=== PATIENT | female | born 1960 | race Caucasian/White ===

== ENCOUNTER 2023-08-19 13:03 | Outpatient (RCR) | payer OTHER, SELFPAY | END 2023-08-19 23:59 | disposition home or self-care (01) | LOC: ROT 13:03 | PROVIDERS: ATTENDING PHYSICIAN Physical Medicine & Rehabilitation; FAMILY PHYSICIAN Internal Medicine Geriatric Medicine | DX: C71.1 Malignant neoplasm of frontal lobe (principal); R47.89 Other speech disturbances; R41.844 Frontal lobe and executive function deficit; R41.841 Cognitive communication deficit; R41.4 Neurologic neglect syndrome; G81.94 Hemiplegia, unspecified affecting left nondominant side; Z73.6 Limitation of activities due to disability | CPT/HCPCS: 92507; 97110; 97112; 97530; 97535 ==

== ENCOUNTER 2023-09-15 13:50 | Outpatient (RCR) | payer BC, SELFPAY | END 2023-09-15 23:59 | disposition home or self-care (01) | LOC: ROT 13:50 | PROVIDERS: ATTENDING PHYSICIAN Physical Medicine & Rehabilitation; FAMILY PHYSICIAN Internal Medicine Geriatric Medicine | DX: C71.1 Malignant neoplasm of frontal lobe (principal); Z73.6 Limitation of activities due to disability | CPT/HCPCS: 96125; 97010; 97110; 97112; 97129; 97130; 97167; 97530 ==

== ENCOUNTER → 2023-09-25 10:47 | Outpatient (REF) | payer MEDICARE, SELFPAY | LOC: HWWDC 10:47 | PROVIDERS: ATTENDING PHYSICIAN Obstetrics & Gynecology; FAMILY PHYSICIAN Internal Medicine Geriatric Medicine | DX: Z12.31 Encounter for screening mammogram for malignant neoplasm of breast (principal) | CPT/HCPCS: 77063; 77067 ==

== ENCOUNTER 2023-10-09 12:40 | Outpatient (RCR) | payer MEDICARE, SELFPAY | END 2023-10-09 23:59 | disposition home or self-care (01) | LOC: ROT 12:40 | PROVIDERS: ATTENDING PHYSICIAN Physical Medicine & Rehabilitation; FAMILY PHYSICIAN Internal Medicine Geriatric Medicine | DX: C71.1 Malignant neoplasm of frontal lobe (principal); Z73.6 Limitation of activities due to disability | CPT/HCPCS: 96125; 97010; 97110; 97112; 97129; 97130; 97163; 97530; 97535 ==

== ENCOUNTER → 2023-10-21 14:01 | Outpatient (REF) | payer MEDICARE, SELFPAY | LOC: RAD 14:01 | PROVIDERS: ATTENDING PHYSICIAN Internal Medicine Geriatric Medicine | DX: G40.909 Epilepsy, unspecified, not intractable, without status epilepticus (principal); G56.21 Lesion of ulnar nerve, right upper limb; K21.9 Gastro-esophageal reflux disease without esophagitis; K59.01 Slow transit constipation; N39.41 Urge incontinence; N81.10 Cystocele, unspecified; N81.9 Female genital prolapse, unspecified; Z82.49 Family history of ischemic heart disease and other diseases of the circulatory system; Z13.89 Encounter for screening for other disorder; E55.9 Vitamin D deficiency, unspecified; M81.0 Age-related osteoporosis without current pathological fracture; E78.5 Hyperlipidemia, unspecified; G93.89 Other specified disorders of brain; M54.12 Radiculopathy, cervical region | CPT/HCPCS: 72052 ==

== ENCOUNTER → 2024-01-26 17:26 | Outpatient (REF) | payer MEDICARE, SELFPAY | LOC: MRI 17:26 | PROVIDERS: ATTENDING PHYSICIAN Internal Medicine Hospice and Palliative Medicine; FAMILY PHYSICIAN Internal Medicine Geriatric Medicine | DX: R53.1 Weakness (principal); R27.9 Unspecified lack of coordination; M25.512 Pain in left shoulder; R53.83 Other fatigue; C71.9 Malignant neoplasm of brain, unspecified | CPT/HCPCS: 73223; A9575 ==

== ENCOUNTER → 2024-02-26 17:02 | Outpatient (REF) | payer MEDICARE, SELFPAY | LOC: RAD 17:02 | PROVIDERS: ATTENDING PHYSICIAN Family Medicine Sports Medicine; FAMILY PHYSICIAN Internal Medicine Geriatric Medicine | DX: M70.62 Trochanteric bursitis, left hip (principal) | CPT/HCPCS: 73502 ==

== ENCOUNTER 2024-05-14 14:11 | Emergency (ER) | payer MEDICARE, SELFPAY ==
[2024-05-14 14:18] VITALS: BP 117/71
[2024-05-14 16:15] VITALS: BP 113/77; BMI 25.0
--- NOTE | 2024-05-14 16:19 | ED.GENMED ---
History of Present Illness
<ASH Gonzalez - Last Filed: 05/14/24 18:31>
General
Chief Complaint: Fall
Source: patient and spouse
Exam Limitations: none
Time Seen by Provider: 05/14/24 15:48
Nursing documentation reviewed up to this point in time: agreed with
History of Present Illness
History of Present Illness:
Patient is a 63-year-old female with history of brain tumor presents to the ER for evaluation. Patient has had radiation and 4 rounds of chemo( last chemo was 3 weeks ago). She reports ever since her craniotomy and surgery a year ago, her
balance has not been the same. she does have left-sided weakness since surgery however for the past several months patient is falling and more frequently. She fell yesterday and fell again this morning. She reports she never has hurt herself
during fall she denies any lightheaded dizziness prior to fall she simply falls. She denies any headache. She denies any chest pain shortness of breath. She denies any recent illness. She called her physician who recommended she come to the ER.
She is followed by Dr. Zee Hancock at [facility].
Past History
<ASH Gonzalez - Last Filed: 05/14/24 18:31>
Past History
ED Past Medical History: GERD
ED Past Surgical History: Gynecological (Tubal ligation)
Social History
Tobacco: Non-smoker
Alcohol: Occasional
Drug: None
Review of Systems
<ASH Gonzalez - Last Filed: 05/14/24 18:31>
Review of Systems
Allergies reviewed?: Yes
All Other Systems: ROS reviewed and negative except as documented in HPI and ROS
Constitutional: Reports no symptoms; Denies fever, fatigue or chills
Respiratory: Reports no symptoms
Cardiac: Reports no symptoms
ABD/GI: Reports no symptoms
Musculoskeletal: Reports no symptoms
Skin: Reports no symptoms
Neurological: Reports other (chronic left sided weakness); Denies headache
Psychiatric: Reports no symptoms
Phy Exam
<ASH Gonzalez - Last Filed: 05/14/24 18:31>
General Physical Exam
General Presentation: no apparent distress
General age: appears stated age
General Skin: warm and dry
General Habitus: normal
General Mental: alert
General Hydration: appears well hydrated
ENT Exam
ENT Exam: EOMI
Neurological Exam
Neurological Exam: alert and other (left side slightly weak (chronic ) )
Musculoskeletal Exam
Musculoskeletal Exam: full ROM
Skin Exam
Skin Exam: normal color
Course
<ASH Gonzalez - Last Filed: 05/14/24 18:31>
Orders/Labs/Results
Orders:
Orders
05/14/24 14:24
CT Head W/o Iv Contrast Urgent
Comment: hx brain cancer followed at [facility]
Reason For Exam: fell twice once today ,once yesterday
05/14/24 16:58
IV Insert/Care/Rem.- Treatment PRN
05/14/24 17:36
Complete Blood Count/With Diff Urgent
Comprehensive Metabolic Panel Urgent
Urinalysis Reflex To Culture Urgent
Date Specimen was Collected: 05/14/24
Time Specimen was Collected: 17:24
Urine Microscopic Reflex Cult Urgent
Urine Culture Urgent
MCKENZIE Source: U
Specimen Description:
Date Specimen was Collected: 05/14/24
Time Specimen was Collected: 17:24
05/14/24 17:46
MR Brain W/o & With Contrast Urgent
Reason For Exam: brain cancer history freq falls
OK for patient to be off Cardiac Monitoring for MRI: Yes
Recent pill cam endoscopy?: No
05/14/24 20:28
Dexamethasone Sod Phosphate [Decadron] 10 mg IV NOW STA
05/14/24 20:32
Cephalexin Monohydrate [Keflex] 500 mg PO NOW STA
Abnormal Lab Results
05/14/24
17:36
WBC 3.6 L 10^3/uL
(4.8-10.8)
RBC 3.24 L 10^6/uL
(4.20-5.40)
Hgb 10.4 L g/dL
(12.0-16.0)
Hct 30.7 L %
(37.0-47.0)
MCH 32.1 H pg
(27.0-31.0)
Plt Count 75 L 10^3/uL
(130-400)
Absolute Lymphs (auto) 0.6 L 10^3/uL
(1.2-3.4)
Lymphocytes % 17.5 L %
(20.5-51.1)
Eosinophils % 6.2 H %
(0-6)
BUN 20 H mg/dl
(7-17)
Glucose 104 H mg/dl
(70-99)
AST 43 H U/L
(14-36)
ALT 61 H U/L
(0-35)
Alkaline Phosphatase 129 H U/L
(38-126)
Total Protein 6.0 L g/dl
(6.3-8.2)
Leukocyte Esterase Rfl 1+ A
(Negative)
Urine WBC (Reflex) 16-20 A /HPF
(0-5)
05/14/24 17:36
05/14/24 17:36
Vital Signs
Initial and Last Documented VS:
Initial Vital Signs
Temp Pulse Resp BP Pulse Ox
98.0 F 77 16 117/71 98
05/14/24 14:18 05/14/24 14:18 05/14/24 14:18 05/14/24 14:18 05/14/24 14:18
Last Documented Vital Signs
Temp Pulse Resp BP Pulse Ox
98.0 F 66 18 113/72 98
05/14/24 14:18 05/14/24 19:08 05/14/24 19:08 05/14/24 19:08 05/14/24 19:08
<Judith Carroll NP - Last Filed: 05/14/24 22:42>
Orders/Labs/Results
Orders:
Orders
05/14/24 14:24
CT Head W/o Iv Contrast Urgent
Comment: hx brain cancer followed at [facility]
Reason For Exam: fell twice once today ,once yesterday
05/14/24 16:58
IV Insert/Care/Rem.- Treatment PRN
05/14/24 17:36
Complete Blood Count/With Diff Urgent
Comprehensive Metabolic Panel Urgent
Urinalysis Reflex To Culture Urgent
Date Specimen was Collected: 05/14/24
Time Specimen was Collected: 17:24
Urine Microscopic Reflex Cult Urgent
Urine Culture Urgent
MCKENZIE Source: U
Specimen Description:
Date Specimen was Collected: 05/14/24
Time Specimen was Collected: 17:24
05/14/24 17:46
MR Brain W/o & With Contrast Urgent
Reason For Exam: brain cancer history freq falls
OK for patient to be off Cardiac Monitoring for MRI: Yes
Recent pill cam endoscopy?: No
05/14/24 20:28
Dexamethasone Sod Phosphate [Decadron] 10 mg IV NOW STA
05/14/24 20:32
Cephalexin Monohydrate [Keflex] 500 mg PO NOW STA
Abnormal Lab Results
05/14/24
17:36
WBC 3.6 L 10^3/uL
(4.8-10.8)
RBC 3.24 L 10^6/uL
(4.20-5.40)
Hgb 10.4 L g/dL
(12.0-16.0)
Hct 30.7 L %
(37.0-47.0)
MCH 32.1 H pg
(27.0-31.0)
Plt Count 75 L 10^3/uL
(130-400)
Absolute Lymphs (auto) 0.6 L 10^3/uL
(1.2-3.4)
Lymphocytes % 17.5 L %
(20.5-51.1)
Eosinophils % 6.2 H %
(0-6)
BUN 20 H mg/dl
(7-17)
Glucose 104 H mg/dl
(70-99)
AST 43 H U/L
(14-36)
ALT 61 H U/L
(0-35)
Alkaline Phosphatase 129 H U/L
(38-126)
Total Protein 6.0 L g/dl
(6.3-8.2)
Leukocyte Esterase Rfl 1+ A
(Negative)
Urine WBC (Reflex) 16-20 A /HPF
(0-5)
05/14/24 17:36
05/14/24 17:36
Vital Signs
Initial and Last Documented VS:
Initial Vital Signs
Temp Pulse Resp BP Pulse Ox
98.0 F 77 16 117/71 98
05/14/24 14:18 05/14/24 14:18 05/14/24 14:18 05/14/24 14:18 05/14/24 14:18
Last Documented Vital Signs
Temp Pulse Resp BP Pulse Ox
98.0 F 66 18 113/72 98
05/14/24 14:18 05/14/24 19:08 05/14/24 19:08 05/14/24 19:08 05/14/24 19:08
<ASH Gonzalez - Last Filed: 05/14/24 18:31>
MDM/Problems Addressed
MDM/Problems Addressed:
Pt as documented is a 63 yr old female w/ hx of brain tumor craniotomy radiation and chemo presents for increased falling. Patient fell yesterday and fell today she denies hitting her head is on blood thinners however with increased frequency of
falls she was sent by her oncologist at [place] Dr. Hancock . I spoke to the physician administrative assistant data entry of and they are asking for lab work to rule out other causes for following. CAT scan was done no bleed however large amount of low-attenuation
throughout the white matter of the right frontal lobe diagnostic possibilities are encephalomalacia at the site of the treated tumor, radiation necrosis or recurrent/residual tumor with vasogenic edema. I did review these findings with physician
administrative assistant data entry at [facility]. who does recommend MRI and labs . I spoke with DR Hancock [phone] will call her back with MRI results.
Care of pt at this time transferred to [facility]
<Judith Carroll NP - Last Filed: 05/14/24 22:42>
MDM/Problems Addressed
MDM/Problems Addressed:
Pt as documented is a 63 yr old female w/ hx of brain tumor craniotomy radiation and chemo presents for increased falling. Patient fell yesterday and fell today she denies hitting her head is on blood thinners however with increased frequency of
falls she was sent by her oncologist at [place] Dr. Hancock . I spoke to the physician administrative assistant data entry of and they are asking for lab work to rule out other causes for following. CAT scan was done no bleed however large amount of low-attenuation
throughout the white matter of the right frontal lobe diagnostic possibilities are encephalomalacia at the site of the treated tumor, radiation necrosis or recurrent/residual tumor with vasogenic edema. I did review these findings with physician
administrative assistant data entry at [facility]. who does recommend MRI and labs . I spoke with DR Hancock [phone] will call her back with MRI results.
Care of pt at this time transferred to [facility]
20:30
Patient MRI results back.
results read to Dr. Hancock she agrees there is nothing acute,
If patient neuro exam is normal and she can ambulate with steady gait she may go home
Pt is on day 2 of Medrol dose pack for a rash
Dr. Hancock asks to stop Methylprednisolone and start Decadron. Give a dose here and then Decadron 4 mg BID give [address] Hancock will touch base with pt on Friday (3 days)
Disc of MRI and CT given to pt.
In to evaluate pt: Neuro exam unremarkable
Offered admission to observe overnight after Decadron
OOB and ambulating well, 'I feel very good.' Pt wants to go home. This is reasonable as she is very steady on feet.
Rx for Decadron sent to pt pharmacy
<Judith Carroll PHP ENGINEER - Last Filed: 05/14/24 22:42>
*Critical Care Note
Total Time (30-74mins, 75-104mins- exclusive of procedures): Not Applicable
ED Attending Note
<ASH Gonzalez - Last Filed: 05/14/24 18:31>
-
Portions of this chart may have been created with voice recognition software.� Occasional wrong word or��sound alike� substitutions may have occurred due to the inherent limitations of voice recognition software.
Discharge Plan
Departure
Patient Disposition: Home (Routine Discharge)
Date of Disposition: 05/14/24
Time of Disposition: 20:30
Patient with high blood pressure during this ER visit?: No
Condition: Good
Discharge Problem:
Acute UTI, Fall
Instructions: Preventing falls in adults, Urinary Tract Infection, Adult ED
Prescriptions:
New
dexamethasone 4 mg tablet
4 mg PO BID Qty: 28 0RF
cephalexin 500 mg capsule
500 mg PO BID 7 Days Qty: 13 0RF
No Action
acetaminophen 325 mg Tablet
650 mg PO Q4H PRN (Reason: Pain)
atorvastatin 20 mg Tablet
20 mg PO DAILY
polyethylene glycol 3350 [Miralax] 17 gram Powder In Packet
17 g PO DAILY
melatonin 3 mg Tablet
3 mg PO HS PRN (Reason: innsomnia)
omeprazole 20 mg Capsule,Delayed Release(Dr/Ec)
20 mg PO DAILY
loratadine 10 mg Tablet
10 mg PO DAILY Qty: 30 0RF
lidocaine 4 % Adhesive Patch,Medicated
1 patch topical DAILY Qty: 30 0RF
cyclobenzaprine 5 mg Tablet
5 mg PO TID PRN (Reason: muscle spasms) Qty: 60 0RF
levetiracetam 1,000 mg Tablet
1,000 mg PO Q12H Qty: 60 0RF
Referrals:
Zee Hancock MD [Non-Admitting Privileges] - Keep scheduled appt
Reinaldo Kenney MD [Family Provider] -
Activity Restrictions/Additional Instructions:
As we discussed, I spoke with Dr. Hancock. She wants you to stop the methylprednisolone and start the Decadron (dexamethasone).
You were given a dose of dexamethasone 10 mg here today. I sent a prescription to your pharmacy for Decadron 4 mg tablets to take twice a day until you talk to Dr. Hancock on Friday
Take the discs of your CT and MRI with you when you see her next.
You have an early urine infection. You were given Keflex 500 mg here today and I sent a prescription to your pharmacy for Keflex 500 mg to take twice a day for 7 days.
Interventions
Interventions:
*Risk Screen - Suicide Last Done: 05/14/24 14:18
*Neglect/Abuse Screening Last Done: 05/14/24 14:18
ED- Fall Risk Assessment Last Done: 05/14/24 16:18
*Nursing Disposition Last Done: 05/14/24 20:57
ED-Musculoskeletal Assessment Last Done: 05/14/24 16:18
ED- Neurological Assessment Last Done: 05/14/24 16:18
Discharge Date and Time
Discharge Date/Time: 05/14/24 20:57
Print Language: MOROCCAN
[2024-05-14 17:59] LABS: ALT (SGPT) 61 U/L (0-35); AST (SGOT) 43 U/L (14-36); Albumin 3.8 g/dl (3.5-5.0); Alkaline Phosphatase 129 U/L (38-126); Blood Urea Nitrogen 20 mg/dl (7-17); Calcium 8.8 mg/dl (8.4-10.2); Carbon Dioxide 27 mmol/L (22-30); Chloride 101 mmol/L (98-107); Estimated Creatinine Clearance 94 ml/min; Glucose 104 mg/dl (70-99); Potassium 3.8 mmol/L (3.5-5.1); Sodium 138 mmol/L (135-145); Total Bilirubin 0.3 mg/dl (0.2-1.3); eGFR > 60.00
[2024-05-14 18:21] LABS: % Basophils 0.3 % (0-2); % Eosinophils 6.2 % (0-6); % Immature Granulocytes 0.3 % (0-0.5); % Lymphocytes 17.5 % (20.5-51.1); % Monocytes 7.6 % (1.7-9.3); % Neutrophils 68.1 % (42.2-75.2); Absolute Eosinophils 0.2 10^3/uL (0-0.7); Absolute Lymphocytes 0.6 10^3/uL (1.2-3.4); Absolute Monocytes 0.3 10^3/uL (0.1-0.6); Absolute Neutrophils 2.4 10^3/uL (1.4-6.5); Hematocrit 30.7 % (37.0-47.0); Hemoglobin 10.4 g/dL (12.0-16.0); Mean Corp Hgb Conc. 33.9 g/dL (33.0-37.0); Mean Corpuscular Hgb 32.1 pg (27.0-31.0); Mean Corpuscular Volume 94.8 fL (81.0-99.0); Mean Platelet Volume 9.7 fL (7.4-10.4); Nucleated Red Blood Cells % 0 %; Platelet Count 75 10^3/uL (130-400); Red Blood Cell Count 3.24 10^6/uL (4.20-5.40); Red Cell Dist. Width 13.6 % (11.5-14.5); White Blood Cell Count 3.6 10^3/uL (4.8-10.8)
[2024-05-14 19:08] VITALS: BP 113/72
[2024-05-14 19:57] LABS: Urine Albumin Negative (Neg - Trace); Urine Bilirubin Negative (Negative); Urine Character Clear (Clear); Urine Color Yellow; Urine Glucose Negative (Negative); Urine Ketone Negative (Negative); Urine Leukocyte 1+ (Negative); Urine Nitrite Negative (Negative); Urine Occult Blood Negative (Negative); Urine Specific Gravity 1.015 (<1.030); Urine Urobilinogen Negative (Neg - 1+)
[2024-05-14 20:17] LABS: Urine Calcium Oxalate Crystals Present; Urine Red Blood Cell 0-2 /HPF (0-2); Urine White Cell 16-20 /HPF (0-5)
[2024-05-14] MEDS: KEFLEX 500 MG PO (20:35)
[2024-05-14] MEDS: DECADRON 10 MG IV (20:35)
== END 2024-05-14 20:57 | disposition home or self-care (01) ==
LOC: EMR 14:11
PROVIDERS: Nurse Practitioner; EMERGENCY PHYSICIAN Emergency Medicine; FAMILY PHYSICIAN Internal Medicine Geriatric Medicine
DX: N39.0 Urinary tract infection, site not specified (principal); R53.1 Weakness; W19.XXXA Unspecified fall, initial encounter; K21.9 Gastro-esophageal reflux disease without esophagitis; C71.9 Malignant neoplasm of brain, unspecified; R29.6 Repeated falls; Z92.3 Personal history of irradiation; Z92.21 Personal history of antineoplastic chemotherapy; Z85.828 Personal history of other malignant neoplasm of skin
CPT/HCPCS: 99285; 96374; 70450; 70553; 80053; 81003; 81015; 85025; 87086; A9575

== ENCOUNTER 2024-07-19 09:26 | Outpatient (RCR) | payer MEDICARE, SELFPAY | END 2024-07-19 23:59 | disposition home or self-care (01) | LOC: ROT 09:26 | PROVIDERS: ATTENDING PHYSICIAN Internal Medicine Hospice and Palliative Medicine; FAMILY PHYSICIAN Internal Medicine Geriatric Medicine | DX: C71.1 Malignant neoplasm of frontal lobe (principal); S42.212S Unspecified displaced fracture of surgical neck of left humerus, sequela; R26.89 Other abnormalities of gait and mobility; G62.89 Other specified polyneuropathies; Z91.81 History of falling; Z73.6 Limitation of activities due to disability | CPT/HCPCS: 97110; 97112; 97163; 97167; 97530; 97535 ==

== ENCOUNTER 2024-07-22 06:23 | Day surgery (SDC) | payer MEDICARE, SELFPAY | END 2024-07-22 08:21 | disposition home or self-care (01) | LOC: GI 06:23 | PROVIDERS: ATTENDING PHYSICIAN Internal Medicine Gastroenterology | DX: R12 Heartburn (principal); K44.9 Diaphragmatic hernia without obstruction or gangrene; K31.7 Polyp of stomach and duodenum; K26.9 Duodenal ulcer, unspecified as acute or chronic, without hemorrhage or perforation; Z13.810 Encounter for screening for upper gastrointestinal disorder | CPT/HCPCS: 43239; 88305; 88342 ==

== ENCOUNTER 2024-08-16 15:59 | Outpatient (RCR) | payer MEDICARE, SELFPAY | END 2024-08-16 23:59 | disposition home or self-care (01) | LOC: ROT 15:59 | PROVIDERS: ATTENDING PHYSICIAN Internal Medicine Hospice and Palliative Medicine; FAMILY PHYSICIAN Internal Medicine Geriatric Medicine | DX: C71.1 Malignant neoplasm of frontal lobe (principal); S42.212S Unspecified displaced fracture of surgical neck of left humerus, sequela; R26.89 Other abnormalities of gait and mobility; G62.89 Other specified polyneuropathies; Z91.81 History of falling; Z73.6 Limitation of activities due to disability | CPT/HCPCS: 97110; 97112; 97116; 97140; 97530; 97535 ==

== ENCOUNTER 2024-09-16 15:59 | Outpatient (RCR) | payer MEDICARE, SELFPAY | END 2024-09-16 23:59 | disposition home or self-care (01) | LOC: ROT 15:59 | PROVIDERS: ATTENDING PHYSICIAN Internal Medicine Hospice and Palliative Medicine; FAMILY PHYSICIAN Internal Medicine Geriatric Medicine | DX: C71.1 Malignant neoplasm of frontal lobe (principal); S42.212S Unspecified displaced fracture of surgical neck of left humerus, sequela; Z91.81 History of falling; R26.89 Other abnormalities of gait and mobility; G62.89 Other specified polyneuropathies; Z73.6 Limitation of activities due to disability | CPT/HCPCS: 97110; 97112; 97116; 97530; 97535 ==

== ENCOUNTER 2024-09-30 16:47 | Outpatient (RCR) | payer MEDICARE, SELFPAY | END 2024-09-30 23:59 | disposition home or self-care (01) | LOC: ROT 16:47 | PROVIDERS: ATTENDING PHYSICIAN Internal Medicine Hospice and Palliative Medicine; FAMILY PHYSICIAN Internal Medicine Geriatric Medicine | DX: C71.1 Malignant neoplasm of frontal lobe (principal); S42.212S Unspecified displaced fracture of surgical neck of left humerus, sequela; Z91.81 History of falling; Z73.6 Limitation of activities due to disability; R26.89 Other abnormalities of gait and mobility; G62.89 Other specified polyneuropathies; M62.81 Muscle weakness (generalized) | CPT/HCPCS: 80053; 85025; 97110; 97112; 97530; 97535 ==

== ENCOUNTER 2024-10-02 14:59 | Inpatient (IN) | payer MEDICARE, SELFPAY ==
[2024-09-30 18:21] VITALS: BP 124/84
[2024-09-30 22:44] VITALS: BP 131/77
[2024-09-30 23:26] VITALS: BP 112/76; BMI 27.0
[2024-09-30 23:54] LABS: % Basophils 0.3 % (0-2); % Eosinophils 0.7 % (0-6); % Immature Granulocytes 0.8 % (0-0.5); % Lymphocytes 21.8 % (20.5-51.1); % Monocytes 9.1 % (1.7-9.3); % Neutrophils 67.3 % (42.2-75.2); Absolute Immature Granulocytes 0.1 10^3/uL (0-0.05); Absolute Lymphocytes 1.3 10^3/uL (1.2-3.4); Absolute Monocytes 0.6 10^3/uL (0.1-0.6); Absolute Neutrophils 4.1 10^3/uL (1.4-6.5); Hematocrit 39.4 % (37.0-47.0); Hemoglobin 12.9 g/dL (12.0-16.0); Mean Corp Hgb Conc. 32.7 g/dL (33.0-37.0); Mean Corpuscular Volume 94.7 fL (81.0-99.0); Mean Platelet Volume 9.3 fL (7.4-10.4); Nucleated Red Blood Cells % 0 %; Platelet Count 196 10^3/uL (130-400); Red Blood Cell Count 4.16 10^6/uL (4.20-5.40); Red Cell Dist. Width 12.9 % (11.5-14.5); White Blood Cell Count 6.1 10^3/uL (4.8-10.8)
[2024-10-01] VITALS (23 sets, daily range): BP systolic 108–143; BP diastolic 66–85; PULSE 73; O2SAT 94
[2024-10-01 00:09] LABS: ALT (SGPT) 48 U/L (0-35); AST (SGOT) 21 U/L (14-36); Albumin 3.5 g/dl (3.5-5.0); Alkaline Phosphatase 94 U/L (38-126); Blood Urea Nitrogen 31 mg/dl (7-17); Calcium 9.3 mg/dl (8.4-10.2); Carbon Dioxide 27 mmol/L (22-30); Chloride 104 mmol/L (98-107); Estimated Creatinine Clearance 81 ml/min; Glucose 102 mg/dl (70-99); Potassium 4.1 mmol/L (3.5-5.1); Sodium 135 mmol/L (135-145); Total Bilirubin 0.4 mg/dl (0.2-1.3); Total Protein 5.7 g/dl (6.3-8.2); eGFR > 60.00
[2024-10-01 00:46] LABS: Urine Albumin 1+ (Neg - Trace); Urine Bilirubin Negative (Negative); Urine Character Clear (Clear); Urine Color Yellow; Urine Glucose Negative (Negative); Urine Ketone Negative (Negative); Urine Leukocyte Negative (Negative); Urine Nitrite Negative (Negative); Urine Occult Blood 1+ (Negative); Urine Urobilinogen Negative (Neg - 1+)
[2024-10-01 00:59] LABS: Urine Bacteria Few (Negative)
--- NOTE | 2024-10-01 01:52 | ED.GENMED ---
History of Present Illness
General
Chief Complaint: Fall
Source: patient
Exam Limitations: none
Time Seen by Provider: 09/30/24 23:04
Nursing documentation reviewed up to this point in time: agreed with
History of Present Illness
History of Present Illness:
63-year-old female past medical history of GERD previous brain tumor presenting to the emergency department today with concerns of multiple falls recently at home lives at home with her . Has had significant ongoing weakness to the left
upper and left lower extremity. Concerns that she is unable to care for self at home unable to care for her sufficiently. Additionally seeking eventual placement.
Past History
Past History
ED Past Medical History: GERD
ED Past Surgical History: Gynecological (Tubal ligation)
Social History
Tobacco: Non-smoker
Alcohol: Occasional
Drug: None
Review of Systems
Review of Systems
Allergies reviewed?: Yes
All Other Systems: ROS reviewed and negative except as documented in HPI and ROS
Phy Exam
Physical Exam
Physical Exam:
GENERAL: Alert , in no apparent distress
EYE: pupils equal and reactive
NECK: Supple, no significant adenopathy.
ENT: o/p clr, mmm.
CARDIAC: Regular rate and rhythm .
LUNGS: Clear breath sounds bilaterally, no acute respiratory distress, no wheezes/rales/rhonchi
ABDOMEN: Soft, without focal tenderness, no r/g, no cvat
NEUROLOGICAL: Alert and oriented, weakness to the left side right side with good strength
SKIN: Warm and dry, skin intact.
MUSCULOSKELETAL: No edema, well perfused.
PSYCH: Normal and appropriate interaction.
Course
Orders/Labs/Results
Orders:
Orders
09/30/24 22:51
CR Shoulder, Trauma - Left Urgent
Comment:
Reason For Exam: L shoulder pain
09/30/24 23:40
EKG [Electrocardiogram (*1)] Urgent
Reason for Study: Fatigue / Weakness
EKG- Treatment ONCE
Urinalysis Reflex To Culture Urgent
Date Specimen was Collected: 10/01/24
Time Specimen was Collected: 00:26
09/30/24 23:46
CBC/With Diff [Complete Blood Count/With Diff] Urgent
CMP [Comprehensive Metabolic Panel] Urgent
10/01/24
CT Head W/o Iv Contrast Urgent
Reason For Exam: hit head
10/01/24 00:39
Urine Microscopic Reflex Cult Urgent
10/01/24 00:45
Straight cath- Treatment ONCE
Straight Cath As Directed
Frequency: One time now
10/01/24 01:55
Case Management Consult ONCE
Case Management Consult: Discharge Planning
Pt Eval And Treat Urgent
Activity Level: Ambulate
10/01/24 01:58
0.9% Sodium Chloride 500 ml [Nss] 500 ml IV BOLUS
Abnormal Lab Results
09/30/24 10/01/24
23:46 00:39
RBC 4.16 L 10^6/uL
(4.20-5.40)
MCHC 32.7 L g/dL
(33.0-37.0)
Abs Immat Gran (auto) 0.1 H 10^3/uL
(0-0.05)
Immature Gran % 0.8 H %
(0-0.5)
BUN 31 H mg/dl
(7-17)
Glucose 102 H mg/dl
(70-99)
ALT 48 H U/L
(0-35)
Total Protein 5.7 L g/dl
(6.3-8.2)
Ur Occult Blood Reflex 1+ A
(Negative)
Urine RBC 7-10 A /HPF
(0-2)
Urine Bacteria (Reflex) Few A
(Negative)
Urine Albumin (Reflex) 1+ A
(Neg - Trace)
09/30/24 23:46
09/30/24 23:46
Vital Signs
Initial and Last Documented VS:
Initial Vital Signs
Temp Pulse Resp BP Pulse Ox
98.1 F 76 16 124/84 94
09/30/24 18:21 09/30/24 18:21 09/30/24 18:21 09/30/24 18:21 09/30/24 18:21
Last Documented Vital Signs
Temp Pulse Resp BP Pulse Ox
98.1 F 57 14 127/78 97
09/30/24 18:21 09/30/24 22:44 09/30/24 22:44 10/01/24 01:00 10/01/24 00:50
MDM/Problems Addressed
MDM/Problems Addressed:
63-year-old female presenting to the emergency department today with concerns of multiple falls recently. Hit her left side of her face also injured her shoulder. Here on arrival vital signs are normal patient in no obvious distress. Unable to
use the left side. Good strength and range of motion of the right side. Head CT without emergent findings shoulder x-ray without emergent finding. Patient feels unsafe going home concerning this plan to admit for PT and case management
*Critical Care Note
Total Time (30-74mins, 75-104mins- exclusive of procedures): Not Applicable
ED Attending Note
-
Portions of this chart may have been created with voice recognition software.� Occasional wrong word or��sound alike� substitutions may have occurred due to the inherent limitations of voice recognition software.
Discharge Plan
Departure
Patient Disposition: Admit
Date of Disposition: 10/01/24
Time of Disposition: 01:56
Admit to: Med/Surg
Admit to doctor: Ilene
Presentation/result/management discussed w/ accepting MD/DO: Hospitalist
Patient with high blood pressure during this ER visit?: No
Condition: Good
Covid-19: Not Applicable
Discharge Problem:
Ambulatory dysfunction, Fall
Prescriptions:
No Action
Colace 50 mg Capsule
50 mg PO BID
naproxen sodium [Aleve] 220 mg Tablet
220 mg PO BID PRN (Reason: back pain)
duloxetine [Cymbalta] 30 mg Capsule,Delayed Release(Dr/Ec)
30 mg PO DAILY
diclofenac sodium [Voltaren] 1 % Gel
2 g TOPICAL QIDPRN PRN (Reason: back and neck pain and knee pain)
mecobalamin (vitamin B12) [B12 Active] 1,000 mcg Tablet,Chewable
1,000 mcg PO DAILY
lidocaine 4 % adhesive patch,medicated
1 patch topical DAILYPRN PRN (Reason: back pain)
dexamethasone 4 mg tablet
4 mg PO DAILY
atorvastatin 20 mg Tablet
20 mg PO DAILY
polyethylene glycol 3350 [Miralax] 17 gram Powder In Packet
17 g PO DAILY
omeprazole 20 mg Capsule,Delayed Release(Dr/Ec)
40 mg PO DAILY
loratadine 10 mg Tablet
10 mg PO DAILY Qty: 30 0RF
levetiracetam 1,000 mg Tablet
1,000 mg PO Q12H Qty: 60 0RF
Referrals:
Reinaldo Kenney MD [Family Provider] -
Interventions
Interventions:
*Risk Screen - Suicide Last Done: 09/30/24 18:21
*General Assessment Last Done: 09/30/24 23:28
*Neglect/Abuse Screening Last Done: 09/30/24 23:28
*ED- Fall Risk Assessment Last Done: 09/30/24 23:28
*ED COVID-19 Vaccine History Last Done: 09/30/24 23:28
ED-Musculoskeletal Assessment Last Done: 09/30/24 23:31
ED- Neurological Assessment Last Done: 10/01/24 00:47
ED-Skin Assessment Last Done: 09/30/24 23:31
Discharge Date and Time
Print Language: GUATEMALAN
[2024-10-01] MEDS: NSS 500 IV (03:07)
--- NOTE | 2024-10-01 03:14 | HPS.HSE ---
Family Physician
-
Family Physician: Reinaldo Kenney
Chief Complaint
-
Frequent falls
History of Present Illness
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
falls for several weeks now and spouse is unable to manage falls at home.
Patient herself providing some history. The falls alcohol with ambulation. She is weak on the left side and often leans to the left side and then falls. She is able to ambulate with person assistance. She is unable to use a walker as she moves
to 1 side of the walker and then falls. She occasionally uses wheelchair to ambulate. She denies feeling dizzy or lightheaded. She denies any new headaches. She is on seizure prophylaxis and denies any new seizures. She denies any urinary
symptoms but has had recurrent UTIs in the last few months. Spouse reports her appetite has improved since middle of last year and she has gained weight. She denies any ankle swelling.
In the emergency department she was afebrile, blood pressure was 118/78 with a pulse of 75 and she was satting 97% on room air. ECG shows sinus bradycardia at a rate of [address] or T wave changes. UA was equivocal with few WBCs
negative nitrites negative leukocyte esterase and few bacteria and squamous cells. CBC was unremarkable. Electrolytes BUN/creatinine were all within normal limits. CT of the head shows no acute intracranial process.
Medical History
Past Medical History
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
Past Surgical History: Reports Brain and Orthopedic
Social History
Tobacco: Non-smoker
Alcohol: None
Drug: None
Personal:
Living: With Family
Employment: Disabled
Family History
Family History: Not pertinent
Allergies / Home Medications
Allergies reflects when Allergies were last updated in [facility].
Home Medications with original date entered in [facility]
Allergy/Medication List:
Allergies
Allergy/AdvReac Type Severity Reaction Status Date / Time
No Known Allergies Allergy Verified 05/14/24 14:20
Home Medications
atorvastatin 20 mg tablet 20 mg PO DAILY 05/16/23
omeprazole 20 mg capsule,delayed release 40 mg PO DAILY 05/16/23
polyethylene glycol 3350 17 gram oral powder packet (Miralax) 17 g PO DAILY 05/16/23
levetiracetam 1,000 mg tablet 1,000 mg PO Q12H #60 tabs 06/03/23
loratadine 10 mg tablet 10 mg PO DAILY #30 tabs 06/03/23
dexamethasone 4 mg tablet 4 mg PO DAILY 09/30/24
diclofenac sodium 1 % topical gel 2 g topical QIDPRN PRN back and neck pain and knee pain 09/30/24
docusate sodium 50 mg capsule 50 mg PO BID 09/30/24
duloxetine 30 mg capsule,delayed release (Cymbalta) 30 mg PO DAILY 09/30/24
lidocaine 4 % topical patch 1 patch topical DAILYPRN PRN back pain 09/30/24
mecobalamin (vitamin B12) 1,000 mcg chewable tablet (B12 Active) 1,000 mcg PO DAILY 09/30/24
naproxen sodium 220 mg tablet (Aleve) 220 mg PO BID PRN back pain 09/30/24
Review of Systems
-
Constitutional: Reports No Symptoms
EENT: Reports No Symptoms
Respiratory: Reports No Symptoms
Cardiac: Reports No Symptoms
Abdomen/GI: Reports No Symptoms
: Reports No Symptoms
Musculoskeletal: Reports No Symptoms
Skin: Reports No Symptoms
Neurological: Reports No Symptoms
Endocrine: Reports No Symptoms
Hematologic/Lymphatic: Reports No Symptoms
Psych: Reports No Symptoms
Physical Exam
Vital Signs
Vital Signs
Temp Pulse Resp BP Pulse Ox
98.1 F 57 14 118/77 97
09/30/24 18:21 09/30/24 22:44 09/30/24 22:44 10/01/24 02:00 10/01/24 00:50
Physical Exam
General: Well Developed, Well Nourished, No Apparent Distress and Comfortable
HEENT: NormoCephalic, Anicteric, Moist mucous membranes and Atraumatic
Respiratory: Clear
Cardiac: S1/S2 and Bradycardia
Breast: Deferred by me
GI: Soft, Non Tender, Non Distended and Normal Bowel Sounds
Rectal: Deferred by Provider
Genito-urinary: Deferred by me
Musculoskeletal: No Clubbing, No Cyanosis and No Edema
Skin: Warm
Neuro: AO x 3, Nonfocal/grossly intact (left sided weakness noted) and No Sensory Deficits; No Slurred Speech or Facial Droop
Hematologic/Lymphatic: No Lymphadenopathy
Psych: Calm
Laboratory Results
-
09/30/24 23:46
09/30/24 23:46
Laboratory Results
Total Bilirubin 0.4 mg/dl (0.2-1.3) 09/30/24 23:46
AST 21 U/L (14-36) 09/30/24 23:46
ALT 48 U/L (0-35) H 09/30/24 23:46
Alkaline Phosphatase 94 U/L (38-126) 09/30/24 23:46
Data Reviewed
-
CT Scan: Report Reviewed by me
Medical Tests (Nuc Med, Echo, EKG etc): Image Personally Visualized and interpreted
Lab Data: Labs Reviewed by me
Old Records: Reviewed
Impression/Plan
-
IMPRESSION:
63 female with history of pain oligodendroglioma status post craniectomy, status post gamma knife radiation as well as status post hyperbaric oxygen and Avastin who presents to the emergency department with chronic falls. She has had multiple falls
with examination showing bruise to the face as well as the left lower extremity. Fall is associated with weakness over the left side which is chronic and unchanged. She has tried outpatient physical therapy without any improvement and spouse feels
like the risk of falling and injuring herself has been growing lately. She already has a surgery for left shoulder fracture secondary to 1 of these falls in June.
Labs here today are unremarkable. UA is equivocal and unlikely for a UTI. CT of the head shows no acute intracranial process.
PLAN:
Ambulatory dysfunction -this is secondary to progressive neurological changes in the setting of oligodendroglioma with resection and development of scar tissue.
- admit to med/surg
- PT OT
- case management (short term inpatient rehab, failure of outpatient)
Neuro - No acute seizures or new focal deficits
- continue dexamethasone 4mg daily
- keppra 1g q 12
- duloxetine 30 mg daily
DVT PPX - SCDs
Code status - Full Code
[2024-10-01] MEDS: KEPPRA 1000 MG PO ×2 (07:30→21:52)
[2024-10-01] MEDS: MIRALAX 17 GRAMS PO (07:30)
[2024-10-01] MEDS: CLARITIN 10 MG PO (07:30)
[2024-10-01] MEDS: COLACE 100 MG PO ×2 (07:30→21:52)
[2024-10-01] MEDS: PROTONIX 40 MG PO (07:30)
[2024-10-01] MEDS: DECADRON 4 MG PO (07:30)
[2024-10-01] MEDS: LIPITOR 20 MG PO (07:30)
[2024-10-01] MEDS: CYMBALTA DELAYED RELEASE 30 MG PO (08:05)
[2024-10-01] MEDS: NAPROSYN 250 MG PO ×2 (08:05→22:33)
--- NOTE | 2024-10-01 10:01 | CM ---
Addendum entered by Irma Cadet RN 10/01/24 17:27:
Patient is eligible for [facility] waiver program.
Addendum entered by Irma Cadet RN 10/01/24 10:24:
CM placed referral via [facility] for outpatient palliative care.
Original Note:
CM spoke with Karlie oil field caser from outpatient rehab requesting claificiation if palliative care was seeing patient. CM confirmed that Palliative Care was not consulted on this patient. Karlie stated that outpatient rehab feels that patient cannot
tolerate SNF or acute rehab at this time. CM updated hospitalist with outpatient rehab case management's concern.
--- NOTE | 2024-10-01 16:34 | W.PN.UPDATE ---
Update Note
Progress Note Update
Seen and examined
Sitting in bed eating toast
No new complaints-
Understand awaiting PT OT evaluation - recommending SNF
DVT study of the LLE ordered and pending as I noted unilateral swelling of the LLE when I evaled her
--She denied pain in the left ankle and knee, will full rom of both joints.
[2024-10-01 18:38] LABS: COVID-19 Antigen Negative (Negative)
[2024-10-02 07:30] VITALS: BP 110/79
[2024-10-02] MEDS: KEPPRA 1000 MG PO ×2 (10:45→22:04)
[2024-10-02] MEDS: MIRALAX 17 GRAMS PO (10:45)
[2024-10-02] MEDS: PROTONIX 40 MG PO (10:45)
[2024-10-02] MEDS: COLACE 100 MG PO ×2 (10:45→22:04)
[2024-10-02] MEDS: LIPITOR 20 MG PO (10:45)
[2024-10-02] MEDS: CYMBALTA DELAYED RELEASE 30 MG PO (10:45)
[2024-10-02] MEDS: DECADRON 4 MG PO (10:45)
[2024-10-02] MEDS: CLARITIN 10 MG PO (10:45)
[2024-10-02] MEDS: NAPROSYN 250 MG PO ×2 (11:29→22:04)
--- NOTE | 2024-10-02 11:29 | CM ---
CM met with pt and spouse at bedside.
Pt resides with spouse in a 2 SH 55+ community on a FF set up. There are 2 NOAH home. Spouse provides all transport. Pt slowly ambulates at baseline with assist. Unable to stand and ambulate independently. Owns RW but does not use. Assist of
1 for ADL's.
Confirmed PCP is Reinaldo Kenney and pharmacy is [facility].
Pt has no HC history. Pt has acute rehab hx at [place] in 2022.
Pt recieves avastin infusions with [facility] every other Fri, last infusion 09/24. She has a hx of brain tumor but their understanding is the purpose of this med is to address the scar tissue size, after no progress with hyperbaric chamber. Spouse
transport pt to infusions.
DC dispo-SNF vs home with VN. Pt currently obs. ? [employer]. SANG completed.
Pt/family preference is for SNF. Offered choice of facility. Preference is for within [facility]. PAC SNF list provided.
--- NOTE | 2024-10-02 12:53 | W.PN.HOSP.TC ---
Today's Communication/Plan
-
Await neurology recommendation
Assessment / Plan
Assessment / Plan
NAD, resting comfortably after MRI, at bedside
Scleral Anicteric
MMM
No JVD
CTABL
RRR, S1/S2
Soft, NT, ND, BS+
Warm, Dry
AAOx3
Calm
Acute periventricular infarct of the right lateral ventricle, adjacent to anterior horn
-Increase to high intensity statin
-Will discuss with neurology for 21 days of DAPT
-PT OT
-Telemetry monitoring
Oligodendroglioma
-Follows with [facility]
-- Dr. Bellamy is aware of her
-Continue AEDs
-Continue steroids 40 mg daily
GERD
Continue PPI
Constipation
Continue MiraLAX
Anticipated Discharge: > 48 hours
Subjective/Interval History
-
Date of Service: October 02, 2024
Seen and examined. No new complaints. No acute overnight events.
at bedside
Objective Data
-
Vital Signs:
Vital Signs
Temp Pulse Resp BP Pulse Ox
97.6 F 64 18 110/79 98
10/02/24 07:30 10/02/24 07:30 10/02/24 07:30 10/02/24 07:30 10/02/24 07:30
I&O
10/01/24 10/02/24 10/03/24
06:59 06:59 06:59
Intake Total 240 / 240
Balance 240 / 240
--- NOTE | 2024-10-02 14:09 | CON.NEURO ---
Neuro Assessment/Plan
Assessment
Brain MRI report small acute periventricular white matter infarct adjacent to the anterior horn of the right lateral ventricle.
Images reviewed, I do see increased DWI signal in the white matter along the anterior horn of the right lateral ventricle. it's not there on the MRI from April 2024
Not convinced that this is an acute stroke, suspecting gliosis. because this did not present suddenly; she has been declining x6 months, and falling x several weeks
the location, right frontal,
lateropulsion towards the weaker side
shuffling, exam with parkinsonism (bradykinesia, masked fascies) however seems to be progressing much more quickly, particularly in light of her having good neuro follow up
will try her on Sinemet 25/100 TID to see if it helps with the shuffling.
Consultation
Order
Date of Consultation: 10/02/24
Requesting Provider:
Reason for Consult:
Subjective/Objective
Subjective Data
Date of Service: October 02, 2024
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 She initially improved with gait x1 year, and for the past 6 months has declined, with worsening left
sided neglect, drifting to the left when she ambulates, and shuffling gait. on further questioning, the past few months also with voice changes, decreased facial expression. no dizziness/lightheadedness; no visual hallucinations. In the past few
weeks, frequent falls, now spouse unable to take care of her at home
Objective Data
Vital Signs
Temp Pulse Resp BP Pulse Ox
36.4 C 64 18 110/79 98
10/02/24 07:30 10/02/24 07:30 10/02/24 07:30 10/02/24 07:30 10/02/24 07:30
Lab Results
09/30/24 23:46
09/30/24 23:46
Sodium 135 mmol/L (135-145) 09/30/24 23:46
Potassium 4.1 mmol/L (3.5-5.1) 09/30/24 23:46
BUN 31 mg/dl (7-17) H 09/30/24 23:46
Glucose 102 mg/dl (70-99) H 09/30/24 23:46
Calcium 9.3 mg/dl (8.4-10.2) 09/30/24 23:46
Patient Allergies
No Known Allergies Allergy (Verified 05/14/24 14:20)
Physical Exam
-
AAOx3, speech clear, language intact
L facial droop
masked fascies
L arm plegic 0/5, L leg 3/5, RUE/LE full strength
+bradykinesia, cogwheel rigidity on the RUE
Medications
-
Active Medications
Generic Name Dose Route Start Last Admin
Trade Name Freq PRN Reason Stop Dose Admin
Acetaminophen 650 mg 10/01/24 03:53
Acetaminophen 325 Mg Tablet PO 10/29/24 03:52
Q4HPRN PRN
mild pain/ONEILL/temp> 100.4F
Atorvastatin Calcium 20 mg 10/01/24 08:00 10/02/24 10:45
Atorvastatin (Lipitor) 20 Mg Tablet PO 10/29/24 07:59 20 mg
DAILY VANDANA Administration
Dexamethasone 4 mg 10/01/24 08:00 10/02/24 10:45
Dexamethasone 4 Mg Tablet PO 10/29/24 07:59 4 mg
DAILY VANDANA Administration
Diclofenac Sodium 2 gram 10/01/24 03:53
Diclofenac 1% Topical Gel 100 Gram Tube TOPICAL 10/29/24 03:52
QIDPRN PRN
back and neck pain and knee pa
Protocol
Docusate Sodium 100 mg 10/01/24 08:00 10/02/24 10:45
Docusate Sodium 100 Mg Capsule PO 10/29/24 07:59 100 mg
BID VANDANA Administration
Duloxetine HCl 30 mg 10/01/24 08:00 10/02/24 10:45
Duloxetine Delayed Release 30 Mg Capsule PO 10/29/24 07:59 30 mg
DAILY VANDANA Administration
Levetiracetam 1,000 mg 10/01/24 08:00 10/02/24 10:45
Levetiracetam 500 Mg Regular Release Tablet PO 10/29/24 07:59 1,000 mg
Q12 VANDANA Administration
Lidocaine 1 patch 10/01/24 03:53
Lidocaine 4% Topical Patch TOPICAL 10/29/24 03:52
DAILYPRN PRN
back pain
Protocol
Loratadine 10 mg 10/01/24 08:00 10/02/24 10:45
Loratadine 10 Mg Tablet PO 10/29/24 07:59 10 mg
DAILY VANDANA Administration
Naproxen 250 mg 10/01/24 08:00 10/02/24 11:29
Naproxen 250 Mg Tablet PO 10/29/24 07:59 250 mg
BID VANDANA Administration
Pantoprazole Sodium 40 mg 10/01/24 08:00 10/02/24 10:45
Pantoprazole 40 Mg Delayed Release Tablet PO 10/29/24 07:59 40 mg
DAILY VANDANA Administration
Polyethylene Glycol 17 grams 10/01/24 08:00 10/02/24 10:45
Polyethylene Glycol Powder 17 Grams Packet PO 10/29/24 07:59 17 grams
DAILY VANDANA Administration
Sodium Chloride 0 flush 10/01/24 05:00
Sodium Chloride 0.9% (Flush) Syringe IV 10/29/24 04:59
PER PROTOCOL VANDANA
Home Medications
�Medication �Instructions �Recorded
atorvastatin 20 mg tablet 20 mg PO DAILY 05/16/23
omeprazole 20 mg capsule,delayed 40 mg PO DAILY 05/16/23
release
polyethylene glycol 3350 17 gram 17 g PO DAILY 05/16/23
oral powder packet (Miralax)
diclofenac sodium 1 % topical gel 0 g topical QIDPRN PRN back,neck 09/30/24
and knee pain
docusate sodium 50 mg capsule 50 mg PO BID 09/30/24
duloxetine 30 mg capsule,delayed 30 mg PO DAILY 09/30/24
release (Cymbalta)
naproxen sodium 220 mg tablet 220 mg PO BIDPRN PRN mild pain 09/30/24
(Aleve)
cetirizine 10 mg tablet (Zyrtec) 10 mg PO HS 10/01/24
cyanocobalamin (vitamin B-12) 1,000 mcg PO DAILY 10/01/24
1,000 mcg tablet
dexamethasone 1 mg tablet 4 mg PO DAILY 10/01/24
fexofenadine 180 mg tablet 180 mg PO DAILY 10/01/24
levetiracetam 1,000 mg tablet 1,000 mg PO BID 10/01/24
[2024-10-02 16:00] VITALS: BP 120/80
[2024-10-02] MEDS: MELATONIN 5 MG PO (22:04)
[2024-10-02 23:00] VITALS: BP 111/68
[2024-10-03 07:30] VITALS: BP 108/68
[2024-10-03] MEDS: NAPROSYN 250 MG PO ×2 (09:42→20:25)
[2024-10-03] MEDS: CYMBALTA DELAYED RELEASE 30 MG PO (09:42)
[2024-10-03] MEDS: DECADRON 4 MG PO (09:42)
[2024-10-03] MEDS: CLARITIN 10 MG PO (09:42)
[2024-10-03] MEDS: COLACE 100 MG PO ×2 (09:42→20:26)
[2024-10-03] MEDS: KEPPRA 1000 MG PO ×2 (09:42→20:25)
[2024-10-03] MEDS: LIPITOR 20 MG PO (09:43)
[2024-10-03] MEDS: MIRALAX 17 GRAMS PO (09:43)
[2024-10-03] MEDS: PROTONIX 40 MG PO (09:43)
--- NOTE | 2024-10-03 12:24 | CM ---
Addendum entered by Mariaa Barker 10/03/24 15:01:
UPDATE: 1501
CM noted consult for dc planning. Chart reviewed. Pt is currently in OBS status w/Traditional [employer], ?[employer]-unable to verify until Friday. Repeat PT and OT are needed to assist further with dispositional planning-orders are in place. Refer to
previous CM notes for additional details.
Floor CM/SW covering tomorrow will need to f/u with all parties.
Original Note:
CM reviewed chart. Pt is not medically stable for dc at this time.
--- NOTE | 2024-10-03 14:31 | W.PN.HOSP.TC ---
Today's Communication/Plan
-
Started on Sinemet
Follow up neuro recs
PT/OT
SNF
Assessment / Plan
Assessment / Plan
NAD, resting comfortably after MRI, at bedside
Scleral Anicteric
MMM
No JVD
CTABL
RRR, S1/S2
Soft, NT, ND, BS+
Warm, Dry
AAOx3, LUE 0/5, LLE 3/5, RUE/LE 5/5
Calm
Acute periventricular infarct of the right lateral ventricle, adjacent to anterior horn
-Neurology does nto believe this is a true CVAm, belives findings are gliosis.
-Believes these symptoms could be Parkinson related and trailing Sinemet
-PT OT
Oligodendroglioma
-Follows with [facility] [facility]
-- Dr. Bellamy is aware of her
-Continue AEDs
-Continue steroids 40 mg daily
GERD
Continue PPI
Constipation
Continue MiraLAX
Anticipated Discharge: Within 24 hours
Subjective/Interval History
-
Date of Service: October 03, 2024
seen and examined
no new complaints
no acute ovenright events
Objective Data
-
Vital Signs:
Vital Signs
Temp Pulse Resp BP Pulse Ox
97.8 F 67 24 108/68 95
10/03/24 07:30 10/03/24 07:30 10/03/24 07:30 10/03/24 07:30 10/03/24 07:30
I&O
10/02/24 10/03/24 10/04/24
06:59 06:59 06:59
Intake Total 240 / 240 1080 / 1080
Balance 240 / 240 1080 / 1080
[2024-10-03 15:00] VITALS: BP 106/72
[2024-10-03] MEDS: MELATONIN 5 MG PO (20:27)
[2024-10-03 23:49] VITALS: BP 104/66
[2024-10-04 06:38] VITALS: BMI 26.0
[2024-10-04 08:00] VITALS: BP 114/73
[2024-10-04] MEDS: CYMBALTA DELAYED RELEASE 30 MG PO (09:12)
[2024-10-04] MEDS: CLARITIN 10 MG PO (09:12)
[2024-10-04] MEDS: LIPITOR 20 MG PO (09:16)
[2024-10-04] MEDS: KEPPRA 1000 MG PO ×2 (09:16→20:06)
[2024-10-04] MEDS: PROTONIX 40 MG PO (09:16)
[2024-10-04] MEDS: COLACE 100 MG PO ×2 (09:17→20:05)
[2024-10-04] MEDS: MIRALAX 17 GRAMS PO (09:18)
[2024-10-04] MEDS: DECADRON 4 MG PO (09:18)
[2024-10-04] MEDS: NAPROSYN 250 MG PO ×2 (09:18→20:05)
--- NOTE | 2024-10-04 10:33 | CM ---
Chart reviewed for d/c planning. Therapy assessed and is recommending SNF at d/c.
CM spoke w/ spouse who shared patient's baseline is assist x1, however, patient is an assist x2 at this time. Spouse agreeable to rehab to get patient back at baseline. Spouse agreeable to SNF referrals in [facility], no specific places
identified.
Spouse had concerns of patient possibly having a stroke as she has not been able to move her L arm in a few days and would like to discuss w/ hospitalist when he rounds.
CM placed multiple referrals in [facility] for review
Plan: SNF; pending accepting facility
[2024-10-04 12:05] VITALS: PULSE 92; O2SAT 92
[2024-10-04 13:52] VITALS: BP 111/73; PULSE 99; O2SAT 92
--- NOTE | 2024-10-04 14:23 | W.PN.NEURO.1 ---
Today's Communication / Plan
-
Continue patient's usual dexamethasone
Presume that part of the patient's ambulatory dysfunction is due to bifrontal abnormalities separate from the patient's acute ischemic stroke
Although the patient does have masked facies, there is no reason to suspect an additional diagnosis of parkinsonism, therefore, would not at this time provide carbidopa/levodopa
Continue rehabilitation evaluations and treatment
Neuro Assessment/Plan
Assessment
Brain MRI report small acute periventricular white matter infarct adjacent to the anterior horn of the right lateral ventricle.
This is an acute ischemic stroke, surrounded by gliosis, in a patient with acute onset of worsening numbers of falls for which the patient is being evaluated by neurosurgery and oncology at the [facility]
Plan
Continue patient's usual dexamethasone
Presume that part of the patient's ambulatory dysfunction is due to bifrontal abnormalities separate from the patient's acute ischemic stroke
Although the patient does have masked facies, there is no reason to suspect an additional diagnosis of parkinsonism, therefore, would not at this time provide carbidopa/levodopa
Continue rehabilitation evaluations and treatment
Will follow as needed
Subjective/Objective
Subjective Data
Date of Service: October 04, 2024
Objective Data
Vital Signs
Temp Pulse Resp BP Pulse Ox
36.7 C 70 16 114/73 95
10/04/24 08:00 10/04/24 08:00 10/04/24 08:00 10/04/24 08:00 10/04/24 08:00
Lab Results
09/30/24 23:46
09/30/24 23:46
Sodium 135 mmol/L (135-145) 09/30/24 23:46
Potassium 4.1 mmol/L (3.5-5.1) 09/30/24 23:46
BUN 31 mg/dl (7-17) H 09/30/24 23:46
Glucose 102 mg/dl (70-99) H 09/30/24 23:46
Calcium 9.3 mg/dl (8.4-10.2) 09/30/24 23:46
Patient Allergies
No Known Allergies Allergy (Verified 05/14/24 14:20)
Past History
Past History
ED Past Medical History: Cancer (right frontal oligodendroglioma), CVA and GERD
ED Past Surgical History: Gynecological (Tubal ligation)
Social History
Tobacco: Non-smoker
Alcohol: Occasional
Drug: None
Family History
Family History: Other (reviewed and non-contributory)
Medications
-
Medications:
Generic Name Dose Route Start Last Admin
Trade Name Freq PRN Reason Stop Dose Admin
Acetaminophen 650 mg 10/01/24 03:53
Acetaminophen 325 Mg Tablet PO 10/29/24 03:52
Q4HPRN PRN
mild pain/ONEILL/temp> 100.4F
Atorvastatin Calcium 20 mg 10/01/24 08:00 10/04/24 09:16
Atorvastatin (Lipitor) 20 Mg Tablet PO 10/29/24 07:59 20 mg
DAILY VANDANA Administration
Dexamethasone 4 mg 10/01/24 08:00 10/04/24 09:18
Dexamethasone 4 Mg Tablet PO 10/29/24 07:59 4 mg
DAILY VANDANA Administration
Diclofenac Sodium 2 gram 10/01/24 03:53
Diclofenac 1% Topical Gel 100 Gram Tube TOPICAL 10/29/24 03:52
QIDPRN PRN
back and neck pain and knee pa
Protocol
Docusate Sodium 100 mg 10/01/24 08:00 10/04/24 09:17
Docusate Sodium 100 Mg Capsule PO 10/29/24 07:59 100 mg
BID VANDANA Administration
Duloxetine HCl 30 mg 10/01/24 08:00 10/04/24 09:12
Duloxetine Delayed Release 30 Mg Capsule PO 10/29/24 07:59 30 mg
DAILY VANDANA Administration
Levetiracetam 1,000 mg 10/01/24 08:00 10/04/24 09:16
Levetiracetam 500 Mg Regular Release Tablet PO 10/29/24 07:59 1,000 mg
Q12 VANDANA Administration
Lidocaine 1 patch 10/01/24 03:53
Lidocaine 4% Topical Patch TOPICAL 10/29/24 03:52
DAILYPRN PRN
back pain
Protocol
Loratadine 10 mg 10/01/24 08:00 10/04/24 09:12
Loratadine 10 Mg Tablet PO 10/29/24 07:59 10 mg
DAILY VANDANA Administration
Melatonin 5 mg 10/02/24 22:00 10/03/24 20:27
Melatonin 5 Mg Tablet PO 10/30/24 21:59 5 mg
HS VANDANA Administration
Naproxen 250 mg 10/01/24 08:00 10/04/24 09:18
Naproxen 250 Mg Tablet PO 10/29/24 07:59 250 mg
BID VANDANA Administration
Pantoprazole Sodium 40 mg 10/01/24 08:00 10/04/24 09:16
Pantoprazole 40 Mg Delayed Release Tablet PO 10/29/24 07:59 40 mg
DAILY VANDANA Administration
Polyethylene Glycol 17 grams 10/01/24 08:00 10/04/24 09:18
Polyethylene Glycol Powder 17 Grams Packet PO 10/29/24 07:59 17 grams
DAILY VANDANA Administration
Sodium Chloride 0 flush 10/01/24 05:00
Sodium Chloride 0.9% (Flush) Syringe IV 10/29/24 04:59
PER PROTOCOL VANDANA
[2024-10-04 14:40] VITALS: BP 110/76
--- NOTE | 2024-10-04 15:11 | W.PN.HOSP.TC ---
Today's Communication/Plan
-
neuro evaluation
continue current care
Assessment / Plan
Assessment / Plan
MR brain
Findings consistent with small acute periventricular white matter infarct adjacent to the anterior horn of the right lateral ventricle.
MR L spine
No compression deformity. No spondylolisthesis.
Transitional vertebral element at the lumbosacral junction. Partial sacralization of L5. L4-5 degenerative disc disease. L4-5 disc protrusion and facet arthrosis with minimal central canal narrowing and minor lateral recess narrowing. Mild to
moderate foraminal narrowing, right greater than left.

1. Left upper extremity weakness
Suspected acute periventricular infarct adjacent to ant horn of right ventricle
-MRI brain without contrast findings as above
-Neurology evaluated over weekend questioning if true findings of stroke on MRI.
-Patient noted worsening left upper extremity weakness again today, discussed with neurology for repeat evaluation
-Eventual Acute rehab will be required
-As needed if patient would benefit with MRI brain with contrast and possible trial of increased dose of steroids if not felt to be stroke. await further input today.
2. Oligodendroglioma
-Follows with [facility]
-Dr. Bellamy is aware of her
-Continue AEDs
-Continue decadron 4mg/d
3. GERD
Continue PPI
4. Constipation
Continue MiraLAX
5. Depression/anxiety
-maintain on cymbalta 30mg/d
6. HLD
- continue on lipitor 20mg/d
DVT PPX -scd
Full code
Anticipated Discharge: 24 - 48 hours
Subjective/Interval History
-
Date of Service: October 04, 2024
Patient having worsening left upper extremity weakness
No other focal neurological deficit reported
Objective Data
-
Vital Signs:
Vital Signs
Temp Pulse Resp BP Pulse Ox
98.1 F 70 16 114/73 95
10/04/24 08:00 10/04/24 08:00 10/04/24 08:00 10/04/24 08:00 10/04/24 08:00
I&O
10/03/24 10/04/24 10/05/24
06:59 06:59 06:59
Intake Total 1080 / 1080 960 / 960
Balance 1080 / 1080 960 / 960
Review of Systems
-
Respiratory: Reports No Symptoms
Cardiac: Reports No Symptoms
Abdomen/GI: Reports No Symptoms
Physical Exam
-
General: Negative Appears in Distress
HEENT: Negative Oxygen
Neuro: Awake and Alert; Negative No Motor Deficits (LUE paresis with gross motor power 2/5)
[2024-10-04] MEDS: MELATONIN 5 MG PO (21:22)
[2024-10-04 23:00] VITALS: BP 101/68
[2024-10-05 07:55] VITALS: BP 120/72
--- NOTE | 2024-10-05 09:06 | W.PN.NEURO.1 ---
Today's Communication / Plan
-
Check CTA for potential blood vessel abnormalities
Provide aspirin 81 mg daily
Increase atorvastatin from 20 to 40 mg to reduce future risk of stroke
Provide medical educational materials regarding stroke
Neuro Assessment/Plan
Assessment
Brain MRI report small acute periventricular white matter infarct adjacent to the anterior horn of the right lateral ventricle.
This is an acute ischemic stroke, surrounded by gliosis, in a patient with acute onset of worsening numbers of falls for which the patient is being evaluated by neurosurgery and oncology at the [facility]
Plan
Check CTA for potential blood vessel abnormalities
Provide aspirin 81 mg daily
Increase atorvastatin from 20 to 40 mg to reduce future risk of stroke
Provide medical educational materials regarding stroke
Goal of normoglycemia
Goal of normotension
Continue rehabilitation evaluations
Continue patient's usual levetiracetam
Continue patient's usual dexamethasone
Will follow peripherally
Subjective/Objective
Subjective Data
Date of Service: October 05, 2024
Patient reports no significant change in symptoms
Objective Data
Vital Signs
Temp Pulse Resp BP Pulse Ox
36.4 C 61 18 120/72 98
10/05/24 07:55 10/05/24 07:55 10/05/24 07:55 10/05/24 07:55 10/05/24 07:55
Lab Results
09/30/24 23:46
09/30/24 23:46
Sodium 135 mmol/L (135-145) 09/30/24 23:46
Potassium 4.1 mmol/L (3.5-5.1) 09/30/24 23:46
BUN 31 mg/dl (7-17) H 09/30/24 23:46
Glucose 102 mg/dl (70-99) H 09/30/24 23:46
Calcium 9.3 mg/dl (8.4-10.2) 09/30/24 23:46
Patient Allergies
No Known Allergies Allergy (Verified 05/14/24 14:20)
Review of Systems
-
History Source: Patient
All other systems: Reviewed and negative
Physical Exam
-
General: No Apparent Distress and Appears Stated Age
Eyes: Round OU, [place] Conjunctivae and No Ptosis
HEENT: Anicteric and Moist Mucous Membranes
Neck: Full Range of Motion
Respiratory: No Dyspnea
Cardiac: No JVD
GI: Non-distended
Skin: Unremarkable
Extremities: No Clubbing, No Cyanosis and No Edema
Psych: Intact Judgement/Insight
Extended Neurological Exam
Mood & Affect: Mood Unremarkable and Affect Unremarkable
Attention Span & Concentration: Awake, Alert and Interactive
Memory: Unremarkable
Tremor: Hand Tremor Absent and Head Tremor Absent
Speech: Quality Unremarkable and Moderately Reduced Output
Cranial Nerve II: Left Eye: Pupillary Size Unremarkable and Visual [place] Grossly Intact
Cranial Nerve II: Right Eye: Pupillary Size Unremarkable and Visual Mendiola Grossly Intact
Cranial Nerves III, IV, : Extraocular Movement: Grossly Intact
Cranial Nerve VIII: Hearing: Unremarkable Hearing to Normal Conversational Volume
Muscle Strength, Overall: Spontaneously Moves
Muscle Bulk & Tone: Bulk Unremarkable and Tone Unremarkable
Touch Sensation: Unremarkable
Coordination: Rbekym-xlip-cyzjni Testing Unremarkable
Past History
Past History
ED Past Medical History: Cancer (right frontal oligodendroglioma), CVA and GERD
ED Past Surgical History: Gynecological (Tubal ligation)
Social History
Tobacco: Non-smoker
Alcohol: Occasional
Drug: None
Personal:
Living: with family
Family History
Family History: Other (reviewed and non-contributory)
Medications
-
Medications:
Generic Name Dose Route Start Last Admin
Trade Name Freq PRN Reason Stop Dose Admin
Acetaminophen 650 mg 10/01/24 03:53
Acetaminophen 325 Mg Tablet PO 10/29/24 03:52
Q4HPRN PRN
mild pain/ONEILL/temp> 100.4F
Aspirin 81 mg 10/06/24 08:00
Aspirin 81 Mg (Enteric Coated) Tablet PO 11/03/24 07:59
DAILY VANDANA
Aspirin 81 mg 10/05/24 09:05
Aspirin 81 Mg (Enteric Coated) Tablet PO 10/05/24 09:06
NOW STA
Atorvastatin Calcium 20 mg 10/01/24 08:00 10/04/24 09:16
Atorvastatin (Lipitor) 20 Mg Tablet PO 10/29/24 07:59 20 mg
DAILY VANDANA Administration
Dexamethasone 4 mg 10/01/24 08:00 10/04/24 09:18
Dexamethasone 4 Mg Tablet PO 10/29/24 07:59 4 mg
DAILY VANDANA Administration
Diclofenac Sodium 2 gram 10/01/24 03:53
Diclofenac 1% Topical Gel 100 Gram Tube TOPICAL 10/29/24 03:52
QIDPRN PRN
back and neck pain and knee pa
Protocol
Docusate Sodium 100 mg 10/01/24 08:00 10/04/24 20:05
Docusate Sodium 100 Mg Capsule PO 10/29/24 07:59 100 mg
BID VANDANA Administration
Duloxetine HCl 30 mg 10/01/24 08:00 10/04/24 09:12
Duloxetine Delayed Release 30 Mg Capsule PO 10/29/24 07:59 30 mg
DAILY VANDANA Administration
Levetiracetam 1,000 mg 10/01/24 08:00 10/04/24 20:06
Levetiracetam 500 Mg Regular Release Tablet PO 10/29/24 07:59 1,000 mg
Q12 VANDANA Administration
Lidocaine 1 patch 10/01/24 03:53
Lidocaine 4% Topical Patch TOPICAL 10/29/24 03:52
DAILYPRN PRN
back pain
Protocol
Loratadine 10 mg 10/01/24 08:00 10/04/24 09:12
Loratadine 10 Mg Tablet PO 10/29/24 07:59 10 mg
DAILY VANDANA Administration
Melatonin 5 mg 10/02/24 22:00 10/04/24 21:22
Melatonin 5 Mg Tablet PO 10/30/24 21:59 5 mg
HS VANDANA Administration
Naproxen 250 mg 10/01/24 08:00 10/04/24 20:05
Naproxen 250 Mg Tablet PO 10/29/24 07:59 250 mg
BID VANDANA Administration
Pantoprazole Sodium 40 mg 10/01/24 08:00 10/04/24 09:16
Pantoprazole 40 Mg Delayed Release Tablet PO 10/29/24 07:59 40 mg
DAILY VANDANA Administration
Polyethylene Glycol 17 grams 10/01/24 08:00 10/04/24 09:18
Polyethylene Glycol Powder 17 Grams Packet PO 10/29/24 07:59 17 grams
DAILY VANDANA Administration
Sodium Chloride 0 flush 10/01/24 05:00
Sodium Chloride 0.9% (Flush) Syringe IV 10/29/24 04:59
PER PROTOCOL VANDANA
[2024-10-05] MEDS: COLACE 100 MG PO ×2 (09:23→19:50)
[2024-10-05] MEDS: LIPITOR 40 MG PO (09:23)
[2024-10-05] MEDS: DECADRON 4 MG PO (09:23)
[2024-10-05] MEDS: CYMBALTA DELAYED RELEASE 30 MG PO (09:23)
[2024-10-05] MEDS: KEPPRA 1000 MG PO ×2 (09:23→19:50)
[2024-10-05] MEDS: ASPIR LOW (ENTERIC COATED) 81 MG PO (09:23)
[2024-10-05] MEDS: NAPROSYN 250 MG PO ×2 (09:23→19:50)
[2024-10-05] MEDS: PROTONIX 40 MG PO (09:24)
[2024-10-05] MEDS: CLARITIN 10 MG PO (09:24)
[2024-10-05] MEDS: MIRALAX 17 GRAMS PO (09:24)
[2024-10-05] MEDS: LIPITOR PO (09:25)
--- NOTE | 2024-10-05 10:43 | W.PN.HOSP.TC ---
Today's Communication/Plan
-
started on baby aspirin
neuro considering further testing for new CVA
continue PT
Assessment / Plan
Assessment / Plan
MR brain
Findings consistent with small acute periventricular white matter infarct adjacent to the anterior horn of the right lateral ventricle.
MR L spine
No compression deformity. No spondylolisthesis.
Transitional vertebral element at the lumbosacral junction. Partial sacralization of L5. L4-5 degenerative disc disease. L4-5 disc protrusion and facet arthrosis with minimal central canal narrowing and minor lateral recess narrowing. Mild to
moderate foraminal narrowing, right greater than left.

1. Left upper extremity weakness
Suspected acute periventricular infarct adjacent to ant horn of right ventricle
-MRI brain without contrast findings as above
-Patient noted worsening left upper extremity weakness , discussed with neurology for repeat evaluation
-Eventual Acute rehab will be required
-Neuro evaluated and planning to do CT angio
-Started on ASA 81mg/d
2. Oligodendroglioma
-Follows with [facility]-on[facility]
-Dr. Bellamy is aware of her
-Continue AEDs
-Continue decadron 4mg/d
3. GERD
Continue PPI
4. Constipation
Continue MiraLAX
5. Depression/anxiety
-maintain on cymbalta 30mg/d
6. HLD
- continue on lipitor 20mg/d
DVT PPX -scd
Full code
Anticipated Discharge: 24 - 48 hours
Subjective/Interval History
-
Date of Service: October 05, 2024
continues to have weakness in BRIANNE and LLE
no new complains
Objective Data
-
Vital Signs:
Vital Signs
Temp Pulse Resp BP Pulse Ox
97.5 F 61 18 120/72 98
10/05/24 07:55 10/05/24 07:55 10/05/24 07:55 10/05/24 07:55 10/05/24 07:55
I&O
10/04/24 10/05/24 10/06/24
06:59 06:59 06:59
Intake Total 960 / 960 800 / 800
Balance 960 / 960 800 / 800
Review of Systems
-
Respiratory: Reports No Symptoms
Cardiac: Reports No Symptoms
Abdomen/GI: Reports No Symptoms
Physical Exam
-
General: Negative Appears in Distress
HEENT: Negative Oxygen
Neuro: Awake and Alert; Negative No Motor Deficits (LUE paresis with gross motor power 2/5)
[2024-10-05 12:10] LABS: HDL Cholesterol 87 mg/dl; LDL Cholesterol, Calculated 59 mg/dl; Total Cholesterol 178 mg/dl (50-199); Triglyceride 164 mg/dl (10-149); Very Low Density Lipoprotein 32 mg/dl (0-30)
--- NOTE | 2024-10-05 12:15 | CM ---
Chart reviewed. Patient is now being recommended for acute rehab.
CM met w/ patient and daughter bedside, agreeable to acute rehab. Per daughter, patient has been at the [facility] located in the hospital in the past.
CM placed [facility] rehab referral in [facility] for review
Plan: Acute rehab recommended; [facility] preferred
[2024-10-05 12:16] LABS: Glycohemoglobin (HgbA1c) 5.7 % (4.0-5.6)
[2024-10-05 12:42] LABS: TSH Reflex To Free T4 3.72 uIU/ml (0.47-4.68)
[2024-10-05 14:24] LABS: Ferritin 22.3 ng/ml (11.1-264.0)
[2024-10-05 14:55] LABS: Folate 10.6 ng/ml (2.76-20); Vitamin B12 878 pg/ml (239-931)
[2024-10-05 15:33] VITALS: BP 114/66
[2024-10-05] MEDS: MELATONIN 5 MG PO (19:54)
[2024-10-05 23:14] VITALS: BP 108/67
[2024-10-06 07:34] VITALS: BP 118/79
[2024-10-06 09:06] LABS: Blood Urea Nitrogen 28 mg/dl (7-17); Calcium 9.1 mg/dl (8.4-10.2); Carbon Dioxide 27 mmol/L (22-30); Chloride 103 mmol/L (98-107); Estimated Creatinine Clearance 70 ml/min; Glucose 81 mg/dl (70-99); Potassium 4.2 mmol/L (3.5-5.1); Sodium 136 mmol/L (135-145); eGFR > 60.00
--- NOTE | 2024-10-06 09:11 | CM ---
Addendum entered by Hiram Escudero 10/06/24 15:14:
Due to late transport time, [facility] unable to accept now until tomorrow morning
hospice admitting clerk arranged transport for 10 am tomorrow morning
Addendum entered by Hiram Escudero 10/06/24 12:14:
Per patient's spouse, patient's [facility] team is recommending for infusions to be on hold until after rehab.
Confirmed w/ [facility] rossiison bed availability today at [facility].
Patient will need ambulance transport, forms on chart
IMM verbally reviewed, patient given copy, copy placed on chart
[facility]
Report: [phone]

Plan: [facility] today. Ambulance transport
Original Note:
Per [facility] rossiison, patient is appropriate for acute rehab but there are no beds available. Bed available at [facility] in [place].
CM spoke w/ patient's spouse to update and see if agreeable to consider different [place] location. Spouse shared he spoke w/ Ge[facility] and was told there is a bed available but when he called there were concerns w/ patient's OP avastin infusions every
other Friday at [facility]. Spouse stated he emailed patient's [facility] team to see if infusions are able to be put on hold until after rehab as spouse stated patient really needs rehab. Spouse agreeable for CM to still place referral to [facility]
location while he awaits a response from [facility] regarding patient's infusions.
[2024-10-06] MEDS: MIRALAX 17 GRAMS PO (10:05)
[2024-10-06] MEDS: CLARITIN 10 MG PO (10:06)
[2024-10-06] MEDS: CYMBALTA DELAYED RELEASE 30 MG PO (10:06)
[2024-10-06] MEDS: LIPITOR 40 MG PO (10:06)
[2024-10-06] MEDS: KEPPRA 1000 MG PO ×2 (10:06→19:42)
[2024-10-06] MEDS: COLACE 100 MG PO ×2 (10:06→19:42)
[2024-10-06] MEDS: ASPIR LOW (ENTERIC COATED) 81 MG PO (10:06)
[2024-10-06] MEDS: NAPROSYN 250 MG PO (10:06)
[2024-10-06] MEDS: PROTONIX 40 MG PO (10:07)
[2024-10-06] MEDS: DECADRON 4 MG PO ×3 (10:07→23:50)
--- NOTE | 2024-10-06 14:21 | W.PN.HOSP.TC ---
Addendum entered and electronically signed by Charlie Woodard MD 10/06/24 16:02:
Discussed case with primary oncologist Dr. Bellamy
Although no clear supporting evidence of patient having significant inflammatory changes, initial MRI brain was without contrast and in light of slowly progressive symptoms will attempt to give a short higher dose Decadron trial.
Patient to be given Decadron 4 mg every 8 for 7 days followed by every 12 hours for 7 days and then dropping to home dose of once daily.
Original Note:
Today's Communication/Plan
-
d/c planning snf rehab
Assessment / Plan
Assessment / Plan
MR brain
Findings consistent with small acute periventricular white matter infarct adjacent to the anterior horn of the right lateral ventricle.
MR L spine
No compression deformity. No spondylolisthesis.
Transitional vertebral element at the lumbosacral junction. Partial sacralization of L5. L4-5 degenerative disc disease. L4-5 disc protrusion and facet arthrosis with minimal central canal narrowing and minor lateral recess narrowing. Mild to
moderate foraminal narrowing, right greater than left.
CTA h&n
CT Brain: No acute intracranial process. Post operative changes of right frontal craniotomy with unchanged underlying encephalomalacia. The known small infarction within the right periventricular white matter is not well visualized on this
examination.
CTA Head: There is moderate stenosis within the right A2/A3 segment of the anterior cerebral artery No aneurysm.
CTA Neck: No significant arterial stenosis. There is a 1.7 cm heterogeneous nodule within the inferior left thyroid lobe for which dedicated thyroid ultrasound is recommended if not previously evaluated.

1. Left upper extremity weakness
Suspected acute periventricular infarct adjacent to ant horn of right ventricle
-MRI brain without contrast findings as above
-Patient noted worsening left upper extremity weakness , discussed with neurology for repeat evaluation
-CTA head and neck did not show any critical stenosis. see report above
-Started on ASA 81mg/d. Dose of Lipitor increased to 40 mg daily
-Discharge planning for SNF rehab
2. Oligodendroglioma
-Follows with [place] [facility] neuro-on[facility]
-Dr. Bellamy's office contacted to update, no call back yet.
-Continue AEDs
-Continue decadron 4mg/d
3. GERD
Continue PPI
4. Constipation
Continue MiraLAX
5. Depression/anxiety
-maintain on cymbalta 30mg/d
6. HLD
- continue on lipitor 20mg/d
DVT PPX -scd
Full code
More than 30 minutes spent in discharge including
Final examination of the patient
Summarizing hospital stay
Instructions for continuing care to all relevant caregivers
Preparation of discharge records, prescriptions, and referral forms
Total time spent (in minutes): 39 mins
Anticipated Discharge: Today
Subjective/Interval History
-
Date of Service: October 06, 2024
No new reported problems
Objective Data
-
Labs:
Laboratory Results
10/06/24
06:25
Sodium 136
Potassium 4.2
Chloride 103
Carbon Dioxide 27
BUN 28 H
Creatinine 0.8
Glucose 81
Calcium 9.1
Vital Signs:
Vital Signs
Temp Pulse Resp BP Pulse Ox
97.5 F 62 18 118/79 96
10/06/24 07:34 10/06/24 07:34 10/06/24 07:34 10/06/24 07:34 10/06/24 07:34
I&O
10/05/24 10/06/24 10/07/24
06:59 06:59 06:59
Intake Total 800 / 800 480 / 480
Balance 800 / 800 480 / 480
Review of Systems
-
Respiratory: Reports No Symptoms
Cardiac: Reports No Symptoms
Abdomen/GI: Reports No Symptoms
Physical Exam
-
General: Negative Appears in Distress
HEENT: Negative Oxygen
Neuro: Awake and Alert; Negative No Motor Deficits (LUE paresis with gross motor power 2/5)
[2024-10-06 14:57] VITALS: BP 100/65
[2024-10-06] MEDS: MELATONIN 5 MG PO (19:42)
[2024-10-06 23:00] VITALS: BP 112/75
[2024-10-07 06:00] VITALS: BMI 26.0
[2024-10-07 07:00] VITALS: BP 105/71
[2024-10-07 08:20] LABS: Blood Urea Nitrogen 27 mg/dl (7-17); Calcium 9.1 mg/dl (8.4-10.2); Carbon Dioxide 21 mmol/L (22-30); Chloride 103 mmol/L (98-107); Estimated Creatinine Clearance 93 ml/min; Glucose 125 mg/dl (70-99); Potassium 4.4 mmol/L (3.5-5.1); Sodium 136 mmol/L (135-145); eGFR > 60.00
[2024-10-07] MEDS: ASPIR LOW (ENTERIC COATED) 81 MG PO (08:45)
[2024-10-07] MEDS: CLARITIN 10 MG PO (08:45)
[2024-10-07] MEDS: DECADRON 4 MG PO (08:45)
[2024-10-07] MEDS: LIPITOR 40 MG PO (08:45)
[2024-10-07] MEDS: COLACE 100 MG PO (08:45)
[2024-10-07] MEDS: KEPPRA 1000 MG PO (08:45)
[2024-10-07] MEDS: PROTONIX 40 MG PO (08:45)
[2024-10-07] MEDS: CYMBALTA DELAYED RELEASE 30 MG PO (08:45)
[2024-10-07] MEDS: MIRALAX 17 GRAMS PO (08:46)
[2024-10-07 08:55] VITALS: BP 106/69; PULSE 75; O2SAT 96
[2024-10-07 08:58] VITALS: BP 106/69; PULSE 76; O2SAT 96
--- NOTE | 2024-10-07 09:42 | W.PN.HOSP.TC ---
Today's Communication/Plan
-
d/c held due to transport issue
medically stable for d/c today
Assessment / Plan
Assessment / Plan
MR brain
Findings consistent with small acute periventricular white matter infarct adjacent to the anterior horn of the right lateral ventricle.
MR L spine
No compression deformity. No spondylolisthesis.
Transitional vertebral element at the lumbosacral junction. Partial sacralization of L5. L4-5 degenerative disc disease. L4-5 disc protrusion and facet arthrosis with minimal central canal narrowing and minor lateral recess narrowing. Mild to
moderate foraminal narrowing, right greater than left.
CTA h&n
CT Brain: No acute intracranial process. Post operative changes of right frontal craniotomy with unchanged underlying encephalomalacia. The known small infarction within the right periventricular white matter is not well visualized on this
examination.
CTA Head: There is moderate stenosis within the right A2/A3 segment of the anterior cerebral artery No aneurysm.
CTA Neck: No significant arterial stenosis. There is a 1.7 cm heterogeneous nodule within the inferior left thyroid lobe for which dedicated thyroid ultrasound is recommended if not previously evaluated.

1. Left upper extremity weakness
Suspected acute periventricular infarct adjacent to ant horn of right ventricle
-MRI brain without contrast findings as above
-Patient noted worsening left upper extremity weakness , discussed with neurology for repeat evaluation
-CTA head and neck did not show any critical stenosis. see report above
-Started on ASA 81mg/d. Dose of Lipitor increased to 40 mg daily
-Discharge planning for SNF rehab
2. Oligodendroglioma
-Follows with [facility]
-Continue AEDs
-Discussed case with primary oncologist Dr. Bellamy on 10/06
Although no clear supporting evidence of patient having significant inflammatory changes, initial MRI brain was without contrast and in light of slowly progressive symptoms will attempt to give a short tapering course of higher dose Decadron trial.
Patient to be given Decadron 4 mg every 8 for 7 days followed by every 12 hours for 7 days and then dropping to home dose of once daily
3. GERD
Continue PPI
4. Constipation
Continue MiraLAX
5. Depression/anxiety
-maintain on cymbalta 30mg/d
6. HLD
- continue on lipitor 20mg/d
DVT PPX -scd
Full code
More than 30 minutes spent in discharge including
Final examination of the patient
Summarizing hospital stay
Instructions for continuing care to all relevant caregivers
Preparation of discharge records, prescriptions, and referral forms
Total time spent (in minutes): 40 mins
Anticipated Discharge: Today
Subjective/Interval History
-
Date of Service: October 07, 2024
comfortable in bed
no reported new problems
Objective Data
-
Labs:
Laboratory Results
10/07/24
06:28
Sodium 136
Potassium 4.4
Chloride 103
Carbon Dioxide 21 L
BUN 27 H
Creatinine 0.6
Glucose 125 H
Calcium 9.1
Vital Signs:
Vital Signs
Temp Pulse Resp BP Pulse Ox
98.1 F 78 18 105/71 96
10/07/24 07:00 10/07/24 07:00 10/07/24 07:00 10/07/24 07:00 10/07/24 07:00
I&O
10/06/24 10/07/24 10/08/24
06:59 06:59 06:59
Intake Total 480 / 480 480 / 480
Balance 480 / 480 480 / 480
Review of Systems
-
Respiratory: Reports No Symptoms
Cardiac: Reports No Symptoms
Abdomen/GI: Reports No Symptoms
Physical Exam
-
General: Negative Appears in Distress
HEENT: Negative Oxygen
Neuro: Awake and Alert; Negative No Motor Deficits (LUE paresis with gross motor power 2/5)
--- NOTE | 2024-10-08 15:48 | W.DCSUMMARY ---
Discharge Summary
Discharge Data
Date of Admission: 10/02/24
Date of Discharge: 10/07/24
-
Pending Results: No
Hospital Course
Discharging Physician : Dr Charlie Woodard
Disposition : SNF rehab
Primary care physician : Dr. Reinaldo Kenney
Principal Discharge diagnosis :
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
Generalized weakness
Recurrent mechanical falls
Chronic Discharge diagnosis :
History of oligodendroglioma status post gamma knife resection
Gastroesophageal reflux disease
Depression/anxiety
Hyperlipidemia
Hospital Course :
Patient is a 64-year-old female with admission past medical history was sent in by outpatient therapist after patient was noted to having worsening weakness and fall. Patient also was noted to having worsening left-sided upper extremity weakness.
Patient have a history of frontal lobe oligodendroglioma for which patient had underwent gamma knife resection in the past and now with suspicion of relapse patient is currently on Avastin therapy. Primary oncologist at [facility].
A follow-up MRI brain was done which showed small periventricular infarct adjacent to anterior horn of right ventricle. Neurology evaluated patient and recommended for patient to be maintained on aspirin, dose of statin was increased. CT head and
neck was done which did not show any critical extracranial carotid narrowing. Detailed report as below. Case was discussed with primary oncologist and patient being given empiric course of increased dose of steroids with worsening weakness
symptoms. Patient was evaluated by physical therapy and was appropriate for shelter facility rehab.
Important imaging findings :
MR brain
Findings consistent with small acute periventricular white matter infarct adjacent to the anterior horn of the right lateral ventricle.
MR L spine
No compression deformity. No spondylolisthesis.
Transitional vertebral element at the lumbosacral junction. Partial sacralization of L5. L4-5 degenerative disc disease. L4-5 disc protrusion and facet arthrosis with minimal central canal narrowing and minor lateral recess narrowing. Mild to
moderate foraminal narrowing, right greater than left.
CTA h&n
CT Brain: No acute intracranial process. Post operative changes of right frontal craniotomy with unchanged underlying encephalomalacia. The known small infarction within the right periventricular white matter is not well visualized on this
examination.
CTA Head: There is moderate stenosis within the right A2/A3 segment of the anterior cerebral artery No aneurysm.
CTA Neck: No significant arterial stenosis. There is a 1.7 cm heterogeneous nodule within the inferior left thyroid lobe for which dedicated thyroid ultrasound is recommended if not previously evaluated.
Procedure findings :
None
Discharge Plan
-
Patient Disposition: [facility]NF
Discharge Diagnosis/Procedures: Acute CVA, H/o oligo-dendrioglioma
Condition: Fair
Diet: Low Cholesterol and 2 Gram Sodium
Activity: As tolerated
Driving Restrictions: No driving
Referrals:
Reinaldo Kenney MD [Family Provider] - in one week
Prescriptions:
New
aspirin 81 mg Tablet,Delayed Release (Dr/Ec)
81 mg PO DAILY Qty: 30 0RF
atorvastatin 40 mg Tablet
40 mg PO DAILY Qty: 30 0RF
loratadine 10 mg Tablet
10 mg PO DAILY Qty: 30 0RF
dexamethasone 4 mg tablet
See Rx Instructions .ROUTE .COMPLEX Qty: 30 0RF
Rx Instructions:
Take 1Tab three times/day for 1 week THEN
Take 1Tab two times/daily for 1 week THEN
Take 1Tab daily for maintenance
Continued
docusate sodium 50 mg Capsule
50 mg PO BID
duloxetine [Cymbalta] 30 mg Capsule,Delayed Release(Dr/Ec)
30 mg PO DAILY
diclofenac sodium 1 % Gel
0 g TOPICAL QIDPRN PRN (Reason: back,neck and knee pain)
cetirizine [Zyrtec] 10 mg Tablet
10 mg PO HS
cyanocobalamin (vitamin B-12) 1,000 mcg Tablet
1,000 mcg PO DAILY
fexofenadine 180 mg Tablet
180 mg PO DAILY
dexamethasone 1 mg Tablet
4 mg PO DAILY
levetiracetam 1,000 mg Tablet
1,000 mg PO BID
polyethylene glycol 3350 [Miralax] 17 gram Powder In Packet
17 g PO DAILY
omeprazole 20 mg Capsule,Delayed Release(Dr/Ec)
40 mg PO DAILY
Discontinued
naproxen sodium [Aleve] 220 mg Tablet
220 mg PO BIDPRN PRN (Reason: mild pain)
atorvastatin 20 mg Tablet
20 mg PO DAILY
Discharge Orders:
Discharge Patient (As Directed); Ordered 10/06/24
Ordered By: Charlie Woodard
Discharge Date and Time
Discharge Date/Time: 10/07/24 10:31
Print Language: BRUNEIAN
== END 2024-10-07 10:31 | DRG 65 ==
LOC: 4 WEST ACU 14:59
PROVIDERS: Hospitalist; Physician Assistant; ADMITTING PHYSICIAN Internal Medicine; ATTENDING PHYSICIAN Hospitalist; CONSULT PHYSICIAN Psychiatry & Neurology Clinical Neurophysiology; EMERGENCY PHYSICIAN Emergency Medicine; FAMILY PHYSICIAN Internal Medicine Geriatric Medicine
DX: I63.89 Other cerebral infarction (principal); C71.9 Malignant neoplasm of brain, unspecified; G20.C Parkinsonism, unspecified; K21.9 Gastro-esophageal reflux disease without esophagitis; K59.00 Constipation, unspecified; F32.A Depression, unspecified; F41.9 Anxiety disorder, unspecified; E78.5 Hyperlipidemia, unspecified; Z79.899 Other long term (current) drug therapy; Z85.841 Personal history of malignant neoplasm of brain; Z87.440 Personal history of urinary (tract) infections; Z11.52 Encounter for screening for COVID-19
CPT/HCPCS: 51701; 70450; 70496; 70498; 70551; 72148; 73030; 80048; 80053; 80061; 81003; 81015; 82607; 82728; 82746; 83036; 84443; 85025; 87502; 87811; 93005; 93971; 96360; 96361; 97110; 97163; 97167; 97530; 97535; 99285; Q9967

== ENCOUNTER 2025-01-11 14:08 | Outpatient (RCR) | payer MEDICARE, SELFPAY | END 2025-01-11 23:59 | disposition home or self-care (01) | LOC: RST 14:08 | PROVIDERS: ATTENDING PHYSICIAN Nurse Practitioner Family | DX: I69.30 Unspecified sequelae of cerebral infarction (principal); I69.318 Other symptoms and signs involving cognitive functions following cerebral infarction (principal) | CPT/HCPCS: 96125; 97110; 97112; 97129; 97130; 97163; 97167; 97530; 97535 ==

== ENCOUNTER → 2025-01-12 14:36 | Outpatient (REF) | payer MEDICARE, SELFPAY | LOC: RCS 14:36 | PROVIDERS: ATTENDING PHYSICIAN Nurse Practitioner Family | DX: I63.9 Cerebral infarction, unspecified (principal) | CPT/HCPCS: 76536; 93306 ==

== ENCOUNTER 2025-02-14 12:14 | Emergency (ER) | payer MEDICARE, SELFPAY ==
[2025-02-14] VITALS (14 sets, daily range): BP systolic 103–130; BP diastolic 72–91; BMI 29.6
--- NOTE | 2025-02-14 15:22 | ED.GENMED ---
History of Present Illness
<Freda Martell DO, Resident - Last Filed: 02/14/25 22:37>
General
Chief Complaint: Fall
Source: patient and significant other
Time Seen by Provider: 02/14/25 14:54
History of Present Illness
History of Present Illness:
Patient is a 64 yo female with a PMH of oligodendroglioma s/p gamma knife therapy and recently started on a new chemotherapy at [facility]. Patient fell out of her wheelchair this morning onto her left side of her face and hands. Patient has residual
left sided LE and UE weakness from a previous CVA, and she thinks that her foot got caught under the wheel chair wheels as her was pushing the wheel chair. The wound on her left cheek was bleeding, but patient denies any bleeding from nose
or mouth. Patient denies any wrist pain. Patient believes that she is at her baseline.
Past History
<Freda Martell DO, Resident - Last Filed: 02/14/25 22:37>
Past History
ED Past Medical History: Cancer (right frontal oligodendroglioma), CVA and GERD
ED Past Surgical History: Gynecological (Tubal ligation)
Social History
Tobacco: Non-smoker
Alcohol: Occasional
Drug: None
Personal:
Living: with family
Family History
Family History: Other (reviewed and non-contributory)
Review of Systems
<Freda Martell DO, Resident - Last Filed: 02/14/25 22:37>
Review of Systems
EENT: Reports no symptoms
Respiratory: Reports cough
Cardiac: Reports no symptoms
ABD/GI: Reports no symptoms
: Reports incontinence
Skin: Reports other (bruising b/l extremities d/t hx of blood thinner - not currently on )
Neurological: Reports no symptoms
Psychiatric: Reports no symptoms
Phy Exam
<Freda Martell DO, Resident - Last Filed: 02/14/25 22:37>
General Physical Exam
General Presentation: no apparent distress
General Skin: warm and dry
General Mental: alert
General Hydration: appears well hydrated
Cardiovascular Exam
Cardiovascular Exam: regular rate/rhythm
Heart Sounds: normal
SAMMY Score
Is patient's age greater than or equal to 65 years: Yes
Has patient used ASA in past seven days?: Yes
Has patient had severe angina in past 24 hrs?: No
Pulmonary Exam
Pulmonary Exam: lungs clear, no respiratory distress, no crackles and no wheezing
Gastrointestinal Exam
Gastrointestinal Exam: normal bowel sounds, non tender and soft
Neurological Exam
Neurological Exam: oriented x3 and other (left sided UE and LE weakness residual from previous CVA)
Course
<Freda Martell DO, Resident - Last Filed: 02/14/25 22:37>
Orders/Labs/Results
Orders:
Orders
02/14/25 15:19
CT Cervical Spine W/o Iv Contr Urgent
Comment:
Reason For Exam: trauma
CT Head W/o Iv Contrast Urgent
Comment:
Reason For Exam: trauma
02/14/25 15:27
CT Facial Bones W/o Iv Contras Urgent
Comment:
Reason For Exam: trauma
02/14/25 15:46
Acetaminophen [Tylenol] 1,000 mg PO NOW STA
02/14/25 18:46
Type+Screen Urgent
Basic Metabolic Panel Urgent
Complete Blood Count/No Diff Urgent
02/14/25 21:19
CT Head W/o Iv Contrast Routine
Comment:
Reason For Exam: monitor post-traumatic hemorrhage at 6 hours
02/14/25 22:06
Protime/PTT Urgent
Abnormal Lab Results
02/14/25
18:46
RBC 4.07 L 10^6/uL
(4.20-5.40)
MCH 31.4 H pg
(27.0-31.0)
MCHC 32.5 L g/dL
(33.0-37.0)
BUN 18 H mg/dl
(7-17)
Creatinine 0.5 L mg/dL
(0.6-1.0)
Glucose 112 H mg/dl
(70-99)
02/14/25 18:46
02/14/25 18:46
Vital Signs
Initial and Last Documented VS:
Initial Vital Signs
Temp Pulse Resp BP
97.5 F 83 16 114/77
02/14/25 12:29 02/14/25 12:29 02/14/25 12:29 02/14/25 12:29
Last Documented Vital Signs
Temp Pulse Resp BP Pulse Ox
97.5 F 62 16 120/91 97
02/14/25 12:51 02/14/25 22:15 02/14/25 22:15 02/14/25 22:02 02/14/25 22:15
Chiquislt;Marie Montgomery, DO - Last Filed: 02/14/25 22:36>
Orders/Labs/Results
Orders:
Orders
02/14/25 15:19
CT Cervical Spine W/o Iv Contr Urgent
Comment:
Reason For Exam: trauma
CT Head W/o Iv Contrast Urgent
Comment:
Reason For Exam: trauma
02/14/25 15:27
CT Facial Bones W/o Iv Contras Urgent
Comment:
Reason For Exam: trauma
02/14/25 15:46
Acetaminophen [Tylenol] 1,000 mg PO NOW STA
02/14/25 18:46
Type+Screen Urgent
Basic Metabolic Panel Urgent
Complete Blood Count/No Diff Urgent
02/14/25 21:19
CT Head W/o Iv Contrast Routine
Comment:
Reason For Exam: monitor post-traumatic hemorrhage at 6 hours
02/14/25 22:06
Protime/PTT Urgent
Abnormal Lab Results
02/14/25
18:46
RBC 4.07 L 10^6/uL
(4.20-5.40)
MCH 31.4 H pg
(27.0-31.0)
MCHC 32.5 L g/dL
(33.0-37.0)
BUN 18 H mg/dl
(7-17)
Creatinine 0.5 L mg/dL
(0.6-1.0)
Glucose 112 H mg/dl
(70-99)
02/14/25 18:46
02/14/25 18:46
Platelet count greater than 100, within normal at 236. Kidney function preserved
Vital Signs
Initial and Last Documented VS:
Initial Vital Signs
Temp Pulse Resp BP
97.5 F 83 16 114/77
02/14/25 12:29 02/14/25 12:29 02/14/25 12:29 02/14/25 12:29
Last Documented Vital Signs
Temp Pulse Resp BP Pulse Ox
97.5 F 62 16 120/91 97
02/14/25 12:51 02/14/25 22:15 02/14/25 22:15 02/14/25 22:02 02/14/25 22:15
<Freda Martell DO, Resident - Last Filed: 02/14/25 22:37>
*Radiology
Radiology exam reviewed: radiology read reviewed
*Pulse Oximetry
SaO2: 96
Oxygen Mode of Delivery: Room air
Patient hypoxic: no
*Critical Care Note
Total Time (30-74mins, 75-104mins- exclusive of procedures): Not Applicable
<Freda Martell DO, Resident - Last Filed: 02/14/25 22:37>
Update Note
Update Note:
CT Head, Facial CT and Cervical Spine CT Impression revealed:
1. Suspect small amounts of posttraumatic parenchymal hemorrhage in the right periventricular frontal lobe in a region of chronic encephalomalacia. No midline shift or herniation.
2. No displaced facial bone fractures.
3. No acute fracture or subluxation of the cervical spine. Multilevel degenerative changes of the cervical spine.
Spoke with Dr. Zee Bellamy over the over phone and given the findings relayed over the phone she suggested observation here for serial CT scans instead of transferring to [facility] reviewed scans and suggested repeat CT in 6 hours and if stable, okay to go home. CT ordered for 21:19, showed no interval change
ED Attending Note
<Freda Martell DO, Resident - Last Filed: 02/14/25 22:37>
-
Portions of this chart may have been created with voice recognition software.� Occasional wrong word or��sound alike� substitutions may have occurred due to the inherent limitations of voice recognition software.
<Marie Montgomery DO - Last Filed: 02/14/25 22:36>
ED Attending Note
Patient seen and examined by attending physician: Yes
I performed the substantive portion of visit, reviewed & personally made and approve the management plan that is documented in note by myself or DANIA.: Yes
I performed a history and physical exam of patient and discussed management with resident, I reviewed resident's note and agree with documented findings and plan of care.: Yes
ED Attending Note:
64-year-old female brought to the ER by her for evaluation after she fell forward out of her wheelchair at home. Patient has been primarily using wheelchair due to profound left-sided weakness status post treatment for an
oligodendroglioma-she had previously undergone gamma knife and is currently on chemo. No blood thinners. No loss of consciousness. No vomiting. She reports some mild pain in her face where she struck the ground, otherwise no headache. No change
in vision. Vital signs reviewed, patient is awake, alert, appears in no acute distress, she has a large abrasion present over her left zygomatic arch, no active bleeding, head is otherwise normocephalic atraumatic, PERRL, EOMI, left arm and leg
with significant weakness at baseline as per patient and present at bedside, moving right arm and leg without any difficulty, speech is clear, GCS is 15. Patient had initial CT scan of head, cervical spine and face revealing small area of
intraparenchymal hemorrhage, no midline shift. I spoke with Dr. Moody, neurosurgery, who would recommend repeat scan in 6 hours. Once repeated scan results available, he was able to review the study and radiology interpretation. As patient is
stable, there is no indication for intervention and patient may be discharged home. I reviewed all test results with patient and present at bedside along with discharge instructions and strict return precautions. They expressed
understanding of discharge plan and felt comfortable. They have no questions at the current time
Discharge Plan
Departure
Patient Disposition: Home (Routine Discharge)
Date of Disposition: 02/14/25
Time of Disposition: 22:33
Patient with high blood pressure during this ER visit?: No
Discharge Problem:
Fall
Prescriptions:
No Action
docusate sodium 50 mg Capsule
50 mg PO BID
duloxetine [Cymbalta] 30 mg Capsule,Delayed Release(Dr/Ec)
30 mg PO DAILY
diclofenac sodium 1 % Gel
0 g TOPICAL QIDPRN PRN (Reason: back,neck and knee pain)
cetirizine [Zyrtec] 10 mg Tablet
10 mg PO HS
cyanocobalamin (vitamin B-12) 1,000 mcg Tablet
1,000 mcg PO DAILY
fexofenadine 180 mg Tablet
180 mg PO DAILY
dexamethasone 1 mg Tablet
4 mg PO DAILY
levetiracetam 1,000 mg Tablet
1,000 mg PO BID
aspirin 81 mg Tablet,Delayed Release (Dr/Ec)
81 mg PO DAILY Qty: 30 0RF
atorvastatin 40 mg Tablet
40 mg PO DAILY Qty: 30 0RF
loratadine 10 mg Tablet
10 mg PO DAILY Qty: 30 0RF
dexamethasone 4 mg tablet
See Rx Instructions .ROUTE .COMPLEX Qty: 30 0RF
Rx Instructions:
Take 1Tab three times/day for 1 week THEN
Take 1Tab two times/daily for 1 week THEN
Take 1Tab daily for maintenance
polyethylene glycol 3350 [Miralax] 17 gram Powder In Packet
17 g PO DAILY
omeprazole 20 mg Capsule,Delayed Release(Dr/Ec)
40 mg PO DAILY
Referrals:
Reinaldo Kenney MD [Family Provider, Internal Medicine]
Salena Moody MD [Active, Neurosurgery]
Interventions
Interventions:
*Risk Screen - Suicide Last Done: 02/14/25 12:29
*General Assessment Last Done: 02/14/25 15:57
*Neglect/Abuse Screening Last Done: 02/14/25 12:29
*ED- Fall Risk Assessment Last Done: 02/14/25 15:57
*ED COVID-19 Vaccine History Last Done: 02/14/25 15:57
ED-Musculoskeletal Assessment Last Done: 02/14/25 12:51
ED- Neurological Assessment Last Done: 02/14/25 12:51
ED-Skin Assessment Last Done: 02/14/25 12:51
Discharge Date and Time
Print Language: NICARAGUAN
[2025-02-14] MEDS: TYLENOL 1000 MG PO (15:54)
[2025-02-14 18:54] LABS: Hematocrit 39.4 % (37.0-47.0); Hemoglobin 12.8 g/dL (12.0-16.0); Mean Corp Hgb Conc. 32.5 g/dL (33.0-37.0); Mean Corpuscular Volume 96.8 fL (81.0-99.0); Platelet Count 236 10^3/uL (130-400); Red Cell Dist. Width 14.0 % (11.5-14.5)
[2025-02-14 19:09] LABS: Blood Urea Nitrogen 18 mg/dl (7-17); Calcium 9.1 mg/dl (8.4-10.2); Carbon Dioxide 30 mmol/L (22-30); Chloride 103 mmol/L (98-107); Estimated Creatinine Clearance 107 ml/min; Glucose 112 mg/dl (70-99); Potassium 4.5 mmol/L (3.5-5.1); Sodium 136 mmol/L (135-145); eGFR > 60.00
[2025-02-14 22:41] LABS: INR 0.79; PT 11.4 Sec (11.4-14.6)
[2025-02-14 22:42] LABS: APTT 19.8 Sec (23.4-35.0)
== END 2025-02-14 23:45 | disposition home or self-care (01) ==
LOC: EMR 12:14
PROVIDERS: EMERGENCY PHYSICIAN Emergency Medicine; FAMILY PHYSICIAN Internal Medicine Geriatric Medicine
DX: S06.30AA Unspecified focal traumatic brain injury with loss of consciousness status unknown, initial encounter (principal); W05.0XXA Fall from non-moving wheelchair, initial encounter; C71.9 Malignant neoplasm of brain, unspecified; Z86.73 Personal history of transient ischemic attack (TIA), and cerebral infarction without residual deficits; Z79.60 Long term (current) use of unspecified immunomodulators and immunosuppressants
CPT/HCPCS: 99284; 70450; 70486; 72125; 80048; 85027; 85610; 85730; 86850; 86900; 86901

== ENCOUNTER 2025-02-17 14:04 | Outpatient (RCR) | payer MEDICARE, SELFPAY | END 2025-02-17 23:59 | disposition home or self-care (01) | LOC: RST 14:04 | PROVIDERS: ATTENDING PHYSICIAN Nurse Practitioner Family | DX: I69.318 Other symptoms and signs involving cognitive functions following cerebral infarction (principal); I69.310 Attention and concentration deficit following cerebral infarction; I69.30 Unspecified sequelae of cerebral infarction | CPT/HCPCS: 97110; 97112; 97116; 97129; 97130; 97140; 97530; 97535 ==

== ENCOUNTER → 2025-03-10 13:04 | Outpatient (REF) | payer MEDICARE, SELFPAY | LOC: PAVMRI 13:04 | PROVIDERS: ATTENDING PHYSICIAN Specialist; FAMILY PHYSICIAN Internal Medicine Geriatric Medicine; REFERRING PHYSICIAN Internal Medicine Hospice and Palliative Medicine | DX: C71.9 Malignant neoplasm of brain, unspecified (principal); M48.02 Spinal stenosis, cervical region | CPT/HCPCS: 72156; A9575 ==

== ENCOUNTER → 2025-03-15 12:28 | Outpatient (REF) | payer MEDICARE, SELFPAY | LOC: WOUND 12:28 | PROVIDERS: ATTENDING PHYSICIAN Surgery; FAMILY PHYSICIAN Internal Medicine Geriatric Medicine | DX: S51.801A Unspecified open wound of right forearm, initial encounter (principal); S51.802A Unspecified open wound of left forearm, initial encounter; G93.89 Other specified disorders of brain; G40.909 Epilepsy, unspecified, not intractable, without status epilepticus; X58.XXXA Exposure to other specified factors, initial encounter | CPT/HCPCS: 97597; 99203 ==

== ENCOUNTER 2025-03-17 12:07 | Outpatient (RCR) | payer MEDICARE, SELFPAY | END 2025-03-17 23:59 | disposition home or self-care (01) | LOC: RST 12:07 | PROVIDERS: ATTENDING PHYSICIAN Nurse Practitioner Family | DX: I69.318 Other symptoms and signs involving cognitive functions following cerebral infarction (principal); I69.310 Attention and concentration deficit following cerebral infarction; I69.30 Unspecified sequelae of cerebral infarction; I63.9 Cerebral infarction, unspecified | CPT/HCPCS: 97110; 97112; 97116; 97129; 97130; 97530; 97535 ==

== ENCOUNTER → 2025-03-29 11:10 | Outpatient (REF) | payer MEDICARE, SELFPAY | LOC: WOUND 11:10 | PROVIDERS: ATTENDING PHYSICIAN Surgery; FAMILY PHYSICIAN Internal Medicine Geriatric Medicine | DX: S51.801A Unspecified open wound of right forearm, initial encounter (principal); S51.802A Unspecified open wound of left forearm, initial encounter; G93.89 Other specified disorders of brain; G40.909 Epilepsy, unspecified, not intractable, without status epilepticus; X58.XXXA Exposure to other specified factors, initial encounter | CPT/HCPCS: 99213 ==

== ENCOUNTER → 2025-04-11 14:36 | Outpatient (REF) | payer MEDICARE, SELFPAY | LOC: WOUND 14:36 | PROVIDERS: ATTENDING PHYSICIAN Surgery; FAMILY PHYSICIAN Internal Medicine Geriatric Medicine | DX: S61.411A Laceration without foreign body of right hand, initial encounter (principal); S61.412A Laceration without foreign body of left hand, initial encounter; G93.89 Other specified disorders of brain; G40.909 Epilepsy, unspecified, not intractable, without status epilepticus; W19.XXXA Unspecified fall, initial encounter | CPT/HCPCS: 99213 ==

== ENCOUNTER 2025-04-15 13:04 | Outpatient (RCR) | payer MEDICARE, SELFPAY | END 2025-04-15 23:59 | disposition home or self-care (01) | LOC: RST 13:04 | PROVIDERS: ATTENDING PHYSICIAN Nurse Practitioner Family | DX: I69.318 Other symptoms and signs involving cognitive functions following cerebral infarction (principal); I69.310 Attention and concentration deficit following cerebral infarction; I69.354 Hemiplegia and hemiparesis following cerebral infarction affecting left non-dominant side; I69.30 Unspecified sequelae of cerebral infarction; I63.9 Cerebral infarction, unspecified; I69.314 Frontal lobe and executive function deficit following cerebral infarction; I69.328 Other speech and language deficits following cerebral infarction; R26.89 Other abnormalities of gait and mobility; Z73.6 Limitation of activities due to disability | CPT/HCPCS: 97110; 97112; 97116; 97129; 97130; 97530; 97535 ==

== ENCOUNTER → 2025-04-18 14:41 | Outpatient (REF) | payer MEDICARE, SELFPAY | LOC: WOUND 14:41 | PROVIDERS: ATTENDING PHYSICIAN Surgery; FAMILY PHYSICIAN Internal Medicine Geriatric Medicine | DX: S61.411A Laceration without foreign body of right hand, initial encounter (principal); S61.412A Laceration without foreign body of left hand, initial encounter; G93.89 Other specified disorders of brain; G40.909 Epilepsy, unspecified, not intractable, without status epilepticus; X58.XXXA Exposure to other specified factors, initial encounter | CPT/HCPCS: 99213 ==

== ENCOUNTER → 2025-04-28 12:56 | Outpatient (REF) | payer MEDICARE, SELFPAY | LOC: WOUND 12:56 | PROVIDERS: ATTENDING PHYSICIAN Surgery; FAMILY PHYSICIAN Internal Medicine Geriatric Medicine | DX: S61.411A Laceration without foreign body of right hand, initial encounter (principal); S61.412A Laceration without foreign body of left hand, initial encounter; G93.89 Other specified disorders of brain; G40.909 Epilepsy, unspecified, not intractable, without status epilepticus; W19.XXXA Unspecified fall, initial encounter | CPT/HCPCS: 99212 ==

== ENCOUNTER 2025-05-17 08:33 | Outpatient (RCR) | payer MEDICARE, SELFPAY | END 2025-05-17 23:59 | disposition home or self-care (01) | LOC: RST 08:33 | PROVIDERS: ATTENDING PHYSICIAN Nurse Practitioner Family | DX: I63.9 Cerebral infarction, unspecified (principal); I69.318 Other symptoms and signs involving cognitive functions following cerebral infarction; I69.310 Attention and concentration deficit following cerebral infarction; I69.354 Hemiplegia and hemiparesis following cerebral infarction affecting left non-dominant side; Z73.6 Limitation of activities due to disability; R26.89 Other abnormalities of gait and mobility | CPT/HCPCS: 97110; 97112; 97116; 97129; 97130; 97530; 97535 ==

== ENCOUNTER 2025-06-14 10:43 | Outpatient (RCR) | payer MEDICARE, SELFPAY | END 2025-06-14 23:59 | disposition home or self-care (01) | LOC: RST 10:43 | PROVIDERS: ATTENDING PHYSICIAN Nurse Practitioner Family | DX: I69.318 Other symptoms and signs involving cognitive functions following cerebral infarction (principal); I69.310 Attention and concentration deficit following cerebral infarction; I69.354 Hemiplegia and hemiparesis following cerebral infarction affecting left non-dominant side; Z73.6 Limitation of activities due to disability; R26.89 Other abnormalities of gait and mobility; I63.9 Cerebral infarction, unspecified | CPT/HCPCS: 97110; 97112; 97129; 97130; 97530; 97535 ==

== ENCOUNTER 2025-06-30 13:46 | Emergency (ER) | payer MEDICARE, SELFPAY ==
[2025-06-30 13:47] VITALS: BP 155/99
[2025-06-30 16:39] VITALS: BP 122/79
--- NOTE | 2025-06-30 16:39 | ED.GENMED ---
History of Present Illness
General
Chief Complaint: Change in Mental Status
Source: spouse
Time Seen by Provider: 06/30/25 15:59
History of Present Illness
History of Present Illness:
64-year-old female brought to the emergency room for evaluation of somnolence. Patient has known brain tumor for which she is receiving chemotherapy through the [facility]. Patient had a previous brain tumor for which she
had chemo, radiation and had a resection. Since starting treatment for the brain tumor the patient has had increased weakness. She was started on Ritalin by her oncologist to help stimulate her level of consciousness. This was started 6 days ago.
Rather than being more awake the patient seems to be continuously more sedated. She has spent most of the past 48 hours sleeping. Her tried to keep her awake without success. She does not take any opiate pain medication or other sedating
type medications. The only new medication is the Ritalin. No fever, chills. Patient denies headache. She is an unreliable historian due to the above. Her states she typically is not able to answer the year or her location. Therefore
all pertinent history is obtained through her .
Past History
Past History
ED Past Medical History: Cancer (right frontal oligodendroglioma), CVA and GERD
ED Past Surgical History: Gynecological (Tubal ligation)
Social History
Tobacco: Non-smoker
Alcohol: Occasional
Drug: None
Personal:
Living: with family
Family History
Family History: Other (reviewed and non-contributory)
Phy Exam
Physical Exam
Physical Exam:
General: Sleeping but arousable with loud voice
Vitals: Hypertensive
Head: Atraumatic
Eyes: Pupils equal, EOMI
Throat: Airway intact, no exudates, dry mucosa
Neck: Trachea midline
Lungs: Clear and equal b/l
Heart: Regular rate, no murmurs
Abd: Soft, Nontender, No pulsatile mass
Neuro: Cranial nerves intact, muscle strength 5 out of 5 in both lower EXTR and in the right upper extremity. Patient has chronic weakness in the left upper extremity from a previous CVA.
Skin: Warm, dry, no rash
Extremities: pulses equal b/l, no edema
Course
Orders/Labs/Results
Orders:
Orders
06/30/25 16:36
Straight cath- Treatment ONCE
06/30/25 16:39
CT Head W/o Iv Contrast Urgent
Comment:
Reason For Exam: altered mental status
06/30/25 16:47
Complete Blood Count/With Diff Urgent
Comprehensive Metabolic Panel Urgent
Magnesium Urgent
Phos [Phosphorus] Urgent
TSH Reflex To Free T4 Urgent
Urinalysis Reflex To Culture Urgent
Date Specimen was Collected: 06/30/25
Time Specimen was Collected: 16:41
Urine Microscopic Reflex Cult Urgent
Urine Culture Urgent
MCKENZIE Source: U
Specimen Description:
Date Specimen was Collected: 06/30/25
Time Specimen was Collected: 16:41
06/30/25 19:50
Cephalexin Monohydrate [Keflex] 500 mg PO NOW STA
Abnormal Lab Results
06/30/25
16:47
RBC 4.14 L 10^6/uL
(4.20-5.40)
Absolute Lymphs (auto) 0.8 L 10^3/uL
(1.2-3.4)
Lymphocytes % 15.4 L %
(20.5-51.1)
Sodium 132 L mmol/L
(135-145)
Glucose 106 H mg/dl
(70-99)
Ur Occult Blood Reflex 2+ A
(Negative)
Urine Nitrite (Reflex) Positive A
(Negative)
Leukocyte Esterase Rfl 3+ A
(Negative)
Urine RBC 3-6 A /HPF
(0-2)
Urine WBC (Reflex) 30-40 A /HPF
(0-5)
Urine Bacteria (Reflex) Many A
(Negative)
Urine Albumin (Reflex) 1+ A
(Neg - Trace)
06/30/25 16:47
06/30/25 16:47
Vital Signs
Initial and Last Documented VS:
Initial Vital Signs
Temp Pulse Resp BP Pulse Ox
98.3 F 92 16 155/99 99
06/30/25 13:47 06/30/25 13:47 06/30/25 13:47 06/30/25 13:47 06/30/25 13:47
Last Documented Vital Signs
Temp Pulse Resp BP Pulse Ox
98.6 F 90 15 118/73 99
06/30/25 17:26 06/30/25 19:45 06/30/25 19:45 06/30/25 19:00 06/30/25 19:45
MDM/Problems Addressed
Differential Diagnosis Includes:
Hyponatremia, renal failure, intracranial bleed, intracranial edema from brain tumor, medication effect
MDM/Problems Addressed:
Patient presents with increased somnolence. Workup here showed no significant change in the appearance of her CAT scan. Chemistries and CBC are reassuring. Urinalysis is consistent with a urinary tract infection with positive nitrates and
positive leukocyte esterase as well as 30-40 WBCs per high-power field. Will start her on cephalexin. Discussed hospitalization versus discharge with patient's . He feels very comfortable taking her home as she will take oral medication.
Given she is hemodynamically stable I feel this is reasonable.
*Radiology
Radiology exam reviewed: radiology read reviewed
*Pulse Oximetry
SaO2: 99
Oxygen Mode of Delivery: Room air
Patient hypoxic: no
*Critical Care Note
Total Time (30-74mins, 75-104mins- exclusive of procedures): Not Applicable
Patient Management
Social determinants of health affecting care: Strong social support
Escalation/DeEscalation of care consider admission/obs:
Considered hospitalization but family prefers to treat the patient at home. Her vital signs are normal. She is arousable and will take oral medication.
ED Attending Note
-
Portions of this chart may have been created with voice recognition software.� Occasional wrong word or��sound alike� substitutions may have occurred due to the inherent limitations of voice recognition software.
Discharge Plan
Departure
Patient Disposition: Home (Routine Discharge)
Date of Disposition: 06/30/25
Time of Disposition: 19:51
Patient with high blood pressure during this ER visit?: No
Condition: Good
Discharge Problem:
Acute UTI, Altered mental status
Instructions: Urinary tract infections in adults, Altered Mental Status (DC)
Prescriptions:
New
cephalexin 500 mg capsule
500 mg PO QID Qty: 28 0RF
No Action
docusate sodium 50 mg Capsule
50 mg PO BID
duloxetine [Cymbalta] 30 mg Capsule,Delayed Release(Dr/Ec)
30 mg PO DAILY
diclofenac sodium 1 % Gel
0 g TOPICAL QIDPRN PRN (Reason: back,neck and knee pain)
cetirizine [Zyrtec] 10 mg Tablet
10 mg PO HS
cyanocobalamin (vitamin B-12) 1,000 mcg Tablet
1,000 mcg PO DAILY
fexofenadine 180 mg Tablet
180 mg PO DAILY
dexamethasone 1 mg Tablet
4 mg PO DAILY
levetiracetam 1,000 mg Tablet
1,000 mg PO BID
aspirin 81 mg Tablet,Delayed Release (Dr/Ec)
81 mg PO DAILY Qty: 30 0RF
atorvastatin 40 mg Tablet
40 mg PO DAILY Qty: 30 0RF
loratadine 10 mg Tablet
10 mg PO DAILY Qty: 30 0RF
dexamethasone 4 mg tablet
See Rx Instructions .ROUTE .COMPLEX Qty: 30 0RF
Rx Instructions:
Take 1Tab three times/day for 1 week THEN
Take 1Tab two times/daily for 1 week THEN
Take 1Tab daily for maintenance
polyethylene glycol 3350 [Miralax] 17 gram Powder In Packet
17 g PO DAILY
omeprazole 20 mg Capsule,Delayed Release(Dr/Ec)
40 mg PO DAILY
Referrals:
Cl Cintron CRNP [Family Provider, General]
Interventions
Interventions:
*Risk Screen - Suicide Last Done: 06/30/25 13:47
*General Assessment Last Done: 06/30/25 17:26
*Neglect/Abuse Screening Last Done: 06/30/25 13:47
*ED COVID-19 Vaccine History Last Done: 06/30/25 17:26
*ED Influenza Vaccine History Last Done: 06/30/25 17:26
[facility] Fall Risk Assessment Tool Last Done: 06/30/25 17:26
ED- Pulmonary Assessment Last Done: 06/30/25 17:26
ED-Psychological Assessment Last Done: 06/30/25 17:26
ED- Neurological Assessment Last Done: 06/30/25 17:26
ED- Cardiac Assessment Last Done: 06/30/25 17:26
ED Swallowing Screen Last Done: 06/30/25 17:26
Discharge Date and Time
Print Language: NICARAGUAN
[2025-06-30 16:41] VITALS: BMI 28.8
[2025-06-30 16:59] LABS: Hematocrit 37.4 % (37.0-47.0); Hemoglobin 12.5 g/dL (12.0-16.0); Mean Corp Hgb Conc. 33.4 g/dL (33.0-37.0); Mean Corpuscular Volume 90.3 fL (81.0-99.0); Nucleated Red Blood Cells % 0 %; Platelet Count 263 10^3/uL (130-400); Red Cell Dist. Width 13.2 % (11.5-14.5)
[2025-06-30 17:00] VITALS: BP 107/68
[2025-06-30 17:21] LABS: ALT (SGPT) 22 U/L (0-35); AST (SGOT) 22 U/L (14-36); Albumin 3.8 g/dl (3.5-5.0); Alkaline Phosphatase 87 U/L (38-126); Blood Urea Nitrogen 14 mg/dl (7-17); Calcium 9.0 mg/dl (8.4-10.2); Carbon Dioxide 28 mmol/L (22-30); Chloride 99 mmol/L (98-107); Estimated Creatinine Clearance 106 ml/min; Glucose 106 mg/dl (70-99); Magnesium 2.1 mg/dl (1.6-2.3); Potassium 4.2 mmol/L (3.5-5.1); Sodium 132 mmol/L (135-145); Total Protein 6.3 g/dl (6.3-8.2); eGFR > 60.00
[2025-06-30 17:26] VITALS: BP 107/68
[2025-06-30 17:48] LABS: Urine Character Clear (Clear)
[2025-06-30 18:09] LABS: Urine White Cell 30-40 /HPF (0-5)
[2025-06-30 18:23] VITALS: BP 124/79
[2025-06-30 19:00] VITALS: BP 118/73
[2025-06-30] MEDS: KEFLEX 500 MG PO (19:55)
== END 2025-06-30 20:17 | disposition home or self-care (01) ==
LOC: EMR 13:46
PROVIDERS: EMERGENCY PHYSICIAN Emergency Medicine; FAMILY PHYSICIAN Nurse Practitioner Family
DX: N39.0 Urinary tract infection, site not specified (principal); C71.9 Malignant neoplasm of brain, unspecified; Z79.60 Long term (current) use of unspecified immunomodulators and immunosuppressants; Z86.73 Personal history of transient ischemic attack (TIA), and cerebral infarction without residual deficits
CPT/HCPCS: 99284; 70450; 80053; 81003; 81015; 83735; 84100; 84443; 85025; 87077; 87086

== ENCOUNTER 2025-07-04 09:33 | Outpatient (RCR) | payer MEDICARE, SELFPAY | END 2025-07-04 23:59 | disposition home or self-care (01) | LOC: RST 09:33 | PROVIDERS: ATTENDING PHYSICIAN Nurse Practitioner Family | DX: I69.318 Other symptoms and signs involving cognitive functions following cerebral infarction (principal); I69.310 Attention and concentration deficit following cerebral infarction; I69.354 Hemiplegia and hemiparesis following cerebral infarction affecting left non-dominant side; Z73.6 Limitation of activities due to disability; R26.89 Other abnormalities of gait and mobility; I63.9 Cerebral infarction, unspecified | CPT/HCPCS: 97129; 97130 ==